=== PATIENT | female | born 1965 | race Caucasian/White ===

== ENCOUNTER → 2016-05-05 | Outpatient (CLI) | payer OTHER ==
--- NOTE | 2016-05-05 17:12 | CR ---
EXAMINATION: Pelvis and right hip HISTORY: Pain COMPARISON: CT dated 04/27/2016 TECHNIQUE: AP pelvis and 2 views of the right hip FINDINGS: There is mild subchondral sclerosis within the acetabula bilaterally. Joint spaces appear grossly preserved. No fracture or acute osseous abnormality. Joint spaces are preserved. The SI join ts are symmetric. IMPRESSION: Mild degenerative changes within the hips bilaterally without acute findings.
== END ==
LOC: MW.CHORTHO 07:55
PROVIDERS: ATTEND Orthopaedic Surgery
DX: M25.551 Pain in right hip (principal)
CPT/HCPCS: 73502-26-RT; 73502-RT

== ENCOUNTER → 2016-05-27 | Outpatient (CLI) | payer OTHER | END | disposition home or self-care (01) | LOC: MW.CHPM 15:45 | PROVIDERS: ATTEND Anesthesiology | DX: Z51.81 Encounter for therapeutic drug level monitoring (principal); Z79.891 Long term (current) use of opiate analgesic | CPT/HCPCS: 80305 ==

== ENCOUNTER → 2016-07-14 | Outpatient (CLI) | payer OTHER ==
--- NOTE | 2016-07-15 15:41 | CT ---
EXAM DATE: 07/14/16 PATIENT'S AGE: 51 Patient: MAGALY WEEMS Facility: [place], [place] Site . Site : [id number] Study: CT Abdomen/Pelvis [id number]/9/2017 5:14:15 PM Ordering Physician: Yohannes Teresa Final Report: INDICATION: Left lower quadrant abdominal pelvic pain. Diverticulitis for 2 days. TECHNIQUE: Noncontrast CT of the abdomen and pelvis. COMPARISON: None. FINDINGS: The included lung bases are clear. The unenhanced liver, spleen, pancreas, adrenal glands, kidneys, abdominal aorta and iliac arteries, inferior vena cava , and urinary bladder are normal. Surgically absent gallbladder. Left lam colonic diverticulosis. There are CT changes compatible with mild diverticulitis within the left lower quadrant at the junction of the descending and sigmoid colon with minimal pericolonic fat stranding. No abscess, bowel obstruction, or free air. The uterus is prominent and there appear to be several uterine masses, likely fibroids. Consider pelvic ultrasound for further characterization. No adnexal masses. No ascites or lymphadenopathy. Normal appendix. The included skeleton is negative for fractures. Degenerative facet arthropathy of the lumbar spine. IMPRESSION: 1. Mild distal descending/proximal sigmoid diverticulitis. No abscess, bowel obstruction, or free air. 2. Uterine masses likely fibroids. Consider ultrasound for further characterization. Dictated by Jovani Thompson MD @ 07/14/2016 5:37:12 PM Dictated by: Jovani Thompson MD @ 07/14/2016 17:37:27 (Electronic Signature) Report Signed by Proxy. JEANETTE
== END | disposition home or self-care (01) ==
LOC: MW.CHIM 16:30
PROVIDERS: ATTEND Internal Medicine
DX: R10.9 Unspecified abdominal pain (principal); K57.32 Diverticulitis of large intestine without perforation or abscess without bleeding; N85.9 Noninflammatory disorder of uterus, unspecified
CPT/HCPCS: 36415; 74176; 74176-26; 80053; 82150; 85025; 85652; 86140

== ENCOUNTER 2016-09-10 08:06 | Day surgery (SDC) | payer OTHER ==
[~2016-09-10 08:06] MED LIST: Lactated Ringers 1,000 ML IV SCH
[2016-09-10] MEDS ORDERED: Propofol 200 MG/20 ML SDV ONE (08:31)
[2016-09-10] MEDS ORDERED: Lidocaine 2% 5 ML SDV ONE (08:31)
--- NOTE | 2016-09-10 08:36 | PCM.PREANE ---
Preanesthetic Assessment - Anesthesia/Transfusion/Family Hx Anesthesia History: Prior Anesthesia Without Reaction Family History of Anesthesia Reaction: No Transfusion History: Prior Transfusion Without Reaction Intubation History: Unknown - Review of Systems General: No Symptoms Pulmonary: No Symptoms Cardiovascular: No Symptoms Gastrointestinal: Abdominal pain Neurological: No Symptoms Other: Reports: None - Physical Assessment Height: 1.68 m Weight: 92.533 kg ASA Class: 2 Mental Status: Alert & Oriented x3 Airway Class: Mallampati = 2 Dentition: Reports: Normal Dentition Thyro-Mental Finger Breadths: 3 Mouth Opening Finger Breadths: 3 ROM/Head Extension: Full Lungs: Clear to auscultation, Normal respiratory effort Cardiovascular: Regular Rate, Regular Rhythm - Lab Values: Laboratory Last Values Urine HCG, Qual NEGATIVE (NEGATIVE) 09/10/16 08:10 - Allergies Allergies/Adverse Reactions: Allergies Allergy/AdvReac Type Severity Reaction Status Date / Time No Known Allergies Allergy Verified 04/27/16 06:47 - Blood Blood Available: No - Anesthesia Plan Pre-Op Medication Ordered: None - Acknowledgements Anesthesia Type Planned: MAC Pt an Appropriate Candidate for the Planned Anesthesia: Yes Alternatives and Risks of Anesthesia Discussed w Pt/Guardian: Yes Pt/Guardian Understands and Agrees with Anesthesia Plan: Yes PreAnesthesia Questionnaire - Past Health History Medical/Surgical History: Denies Medical/Surgical History HEENT History: Reports: None Cardiovascular History: Reports: None Respiratory History: Reports: None Gastrointestinal History: Reports: Diverticulosis Other Gastrointestinal History: hx diverticulitis Genitourinary History: Reports: None BODY LINER History: Reports: Musculoskeletal History: Reports: Back Pain, Chronic, Other (See Below) (lumbar spinal stenosis, multilevel neural foraminal stenosis,myofascial pain syndrome) Neurological History: Reports: Other (See Below) Other Neuro History: Nerve pain r/t chronic back pain Psychiatric History: Reports: None Endocrine/Metabolic History: Reports: Obesity/BMI 30+ Hematologic History: Reports: Anemia, Blood Transfusion(s) Other Hematologic History: states transfusion when she was young, states has bleeding disorder Immunologic History: Reports: None Oncologic (Cancer) History: Reports: None Dermatologic History: Reports: None - Infectious Disease History Infectious Disease History: Reports: None - Past Surgical History Head Surgeries/Procedures: Reports: None HEENT Surgical History: Reports: Adenoidectomy, Tonsillectomy GI Surgical History: Reports: Cholecystectomy, Colonoscopy ('11) Female Surgical History: Reports: Section Musculoskeletal Surgical History: Reports: Arthroscopic Knee, Shoulder Surgery, Other (See Below) Other Musculoskeletal Surgeries/Procedures:: Right knee surgery for meniscus repair, right rotator cuff repair - SUBSTANCE USE Smoking Status *Q: Never Smoker Tobacco Use Within Last Twelve Months: Cigarettes Second Hand Smoke Exposure: No Days Per Week of Alcohol Use: 1 Number of Drinks Per Day: 3 Total Drinks Per Week: 3 Recreational Drug Use History: No - HOME MEDS Home Medications: Home Meds . [No Known Home Meds] 09/07/16 [History] - CURRENT (IN HOUSE) MEDS Current Meds: Current Medications Lactated Ringer's (Ringers, Lactated) 1,000 mls @ 125 mls/hr IV ASDIRECTED KARY
[2016-09-10] MEDS ORDERED: Lactated Ringers 1,000 ML IV SCH (10:30)
--- NOTE | 2016-09-10 10:31 | PCM.OPNOTE ---
- General Post-Op/Procedure Note Date of Surgery/Procedure: 09/10/16 Operative Procedure(s): Colonoscopy Pre Op Diagnosis: Left lower quadrant pain. Change in bowel habits. History of diverticulitis. Post-Op Diagnosis: Sigmoid diverticulosis Anesthesia Technique: MAC (ASA II) Primary Surgeon: Peter Walls Condition: Good Free Text/Narrative:: Dictation [id number] CPT CODE 39747
--- NOTE | 2016-09-10 10:44 | PCM.POSTAN ---
POST ANESTHESIA ASSESSMENT - MENTAL STATUS Mental Status: alert, oriented - RESPIRATORY Respiratory Status: respiratory rate WNL, airway patent, O2 saturation stable - CARDIOVASCULAR CV Status: pulse rate WNL, blood pressure stable - GASTROINTESTINAL GI Status: no symptoms - POST OP HYDRATION Hydration Status: adequate & stable - OBSERVATIONS Free Text/Narrative:: no anesthesia problems
[2016-09-10 11:17] VITALS: BP 133/47
--- NOTE | 2016-09-10 12:13 | OR ---
SURGEON: Peter Walls M.D. DATE OF PROCEDURE: 09/10/2016 OPERATION PERFORMED: Colonoscopy. ANESTHESIA: MAC. ASA CLASSIFICATION: II. PREOPERATIVE DIAGNOSES: 1. Left lower quadrant pain. 2. Change in bowel habits. 3. History of diverticulitis. POSTOPERATIVE DIAGNOSIS: Sigmoid diverticulosis. DESCRIPTION OF PROCEDURE: The patient was taken to the endoscopy room and positioned on the endoscopy table in the left lateral decubitus position. Time-out was called for appropriate identification of the patient and procedure. Monitored anesthesia care was provided. The colonoscope was inserted into the rectum and advanced with moderate difficulty to the cecum, where the colonoscope was retroflexed to visualize the ascending colon from below. The colonoscope was then straightened and slowly withdrawn. The cecum, ascending colon, hepatic flexure, transverse colon, splenic flexure, and descending colon showed no tumors, polyps, diverticula, or angiodysplastic changes. There was no evidence of inflammatory bowel disease. Sigmoid colon demonstrates numerous diverticula. No stricture, spasm, or bleeding was noted. No acute inflammatory changes were noted. No polyps were identified. The colonoscope was withdrawn to the rectum and retroflexed to visualize the anal orifice from above. No tumors, polyps, or acute hemorrhoidal changes were noted. The colonoscope was then straightened, the rectum aspirated, and the colonoscope removed. The patient tolerated the procedure well and was taken to recovery room in stable condition. OWEN ESPINOZA /[id number]
== END 2016-09-10 11:05 | disposition home or self-care (01) ==
LOC: MW.SDS 08:06
PROVIDERS: ATTEND Surgery
DX: K57.30 Diverticulosis of large intestine without perforation or abscess without bleeding (principal); Z79.899 Other long term (current) drug therapy; Z98.890 Other specified postprocedural states; Z78.9 Other specified health status
CPT/HCPCS: 45378; 81025; J7120; J2704

== ENCOUNTER 2016-11-11 09:14 | Inpatient (IN) | payer OTHER ==
[2016-11-11] MEDS ORDERED: Sodium Chloride 0.9% 1,000 ML IV ONE (09:47)
[2016-11-11] MEDS ORDERED: Ondansetron 4 MG/2 ML SDV IVPUSH ONE (09:47)
[2016-11-11] MEDS ORDERED: Sodium Chloride 0.9% 10 ML Syringe FLUSH PRN (09:47)
[2016-11-11] MEDS ORDERED: HYDROmorphone 2 MG/ML Syringe IVPUSH ONE (09:47)
[2016-11-11] MEDS ORDERED: Sodium Chloride 0.9% 2.5 ML Syringe FLUSH PRN (09:47)
--- NOTE | 2016-11-11 09:51 | EDM.PDOC ---
ED HPI GENERAL MEDICAL PROBLEM - General Chief Complaint: Abdominal Pain Stated Complaint: VOMITING Time Seen by Provider: 11/11/16 09:40 - History of Present Illness INITIAL COMMENTS - FREE TEXT/NARRATIVE: HISTORY AND PHYSICAL: History of present illness: The patient is a 51-year-old female with a history of diverticulosis and diverticulitis was had 2 flareups of diverticulitis this year so far, one in April and one in July, and presents with left lower quadrant pain that she believes to be diverticulitis. The patient says that she has had many flareups in the past and last had a colonoscopy in September which I reviewed. Patient says this pain started and was intense she has not had a fever or flank pain no urinary complaints but has had nausea vomiting and diarrhea. Patient had some Cipro left over from her last flareup and took 1 tablet of 500 mg and she said that her bowel movement this morning was more formed. Her bowel movements are not black or bloody. Patient did not take anything specific for pain and she said that she did eat pickles recently and she is not sure if that aggravated things. She has no chest pain or shortness of breath and her pain is only localized in the left lower quadrant. She has had upper respiratory symptoms of a cough and runny nose but she is not concerned about that. The patient does admit that she does drink a moderate amount of caffeinated products Review of systems: As per history of present illness and below otherwise all systems reviewed and negative. Past medical history: As per history of present illness and as reviewed below otherwise noncontributory. Surgical history: As per history of present illness and as reviewed below otherwise noncontributory. Social history: No reported history of drug or alcohol abuse. Family history: As per history of present illness and as reviewed below otherwise noncontributory. Physical exam: Gen.: Well-developed mildly overweight female who is nontoxic and speaking clearly and easily in the ED. She moves without distress. Vital signs of the note by me. HEENT: Atraumatic, normocephalic, pupils reactive, negative for conjunctival pallor or scleral icterus, mucous membranes tacky, throat clear, neck supple, nontender, trachea midline. Lungs: Clear to auscultation, breath sounds equal bilaterally, chest nontender. Heart: S1S2, regular, negative for clicks, rubs, or JVD. Abdomen: Soft, nondistended, bowel sounds are hypoactive, there is tenderness in the left lower quadrant some voluntary guarding but no involuntary guarding or rebound, Negative for masses or hepatosplenomegaly. Negative for costovertebral tenderness. Pelvis: Stable nontender. Genitourinary: Deferred. Rectal: Deferred. Extremities: Atraumatic, negative for cords or calf pain. Neurovascular unremarkable. Neuro: Awake, alert, oriented. Cranial nerves II through XII unremarkable. Cerebellum unremarkable. Motor and sensory unremarkable throughout. Exam nonfocal. Diagnostics: CBC CMP UA CT scan of the abdomen and pelvis Therapeutics: IV fluids Dilaudid Zofran Flagyl and Levaquin I discussed all testing results with the patient and she is still particularly tender on palpation but when I am not touching her she says she does not have any pain. I discussed the case and the CAT scan with Dr. Walls at 12:26 PM as well as Dr. Hernandez at 12:[address] Hernandez's accepted the patient for admission and Dr. Walls will perform a consult per Dr. Hernandez's request. Patient is agreeable to stay in the hospital as well. Please note that the patient did not complain of any periumbilical discomfort and has no tenderness in that region. Impression: Acute sigmoid diverticulitis with microperforation Definitive disposition and diagnosis as appropriate pending reevaluation and review of above. abdomen Pain Score (Numeric/FACES): 10 - Related Data Allergies Allergy/AdvReac Type Severity Reaction Status Date / Time No Known Allergies Allergy Verified 11/11/16 09:29 Home Meds: Home Meds Ciprofloxacin HCl [Cipro] 500 mg PO BID 11/11/16 [History] Orphenadrine [Norflex] 100 mg PO BID PRN 11/11/16 [History] Past Medical History - Past Health History Medical/Surgical History: Denies Medical/Surgical History HEENT History: Reports: None Cardiovascular History: Reports: None Respiratory History: Reports: None Gastrointestinal History: Reports: Diverticulosis Other Gastrointestinal History: hx diverticulitis Genitourinary History: Reports: None [employer] WORK[employer] History: Reports: Musculoskeletal History: Reports: Back Pain, Chronic, Other (See Below) Neurological History: Reports: Other (See Below) Other Neuro History: Nerve pain r/t chronic back pain Psychiatric History: Reports: None Endocrine/Metabolic History: Reports: Obesity/BMI 30+ Hematologic History: Reports: Anemia, Blood Transfusion(s) Other Hematologic History: states transfusion when she was young, states has bleeding disorder Immunologic History: Reports: None Oncologic (Cancer) History: Reports: None Dermatologic History: Reports: None - Infectious Disease History Infectious Disease History: Reports: None - Past Surgical History Head Surgeries/Procedures: Reports: None HEENT Surgical History: Reports: Adenoidectomy, Tonsillectomy GI Surgical History: Reports: Cholecystectomy, Colonoscopy Female Surgical History: Reports: Section Musculoskeletal Surgical History: Reports: Arthroscopic Knee, Shoulder Surgery, Other (See Below) Other Musculoskeletal Surgeries/Procedures:: Right knee surgery for meniscus repair, right rotator cuff repair Social & Family History - Family History Family Medical History: Noncontributory - Tobacco Use Smoking Status *Q: Never Smoker Years of Tobacco use: 0 Packs/Tins Daily: 0 Second Hand Smoke Exposure: No - Caffeine Use Caffeine Use: Reports: Soda - Alcohol Use Days Per Week of Alcohol Use: 1 Number of Drinks Per Day: 3 Total Drinks Per Week: 3 - Recreational Drug Use Recreational Drug Use: No ED ROS GENERAL - Review of Systems Review Of Systems: ROS reveals no pertinent complaints other than HPI. ED EXAM, GENERAL - Physical Exam Exam: See Below (See dictation) Course - Vital Signs Last Recorded V/S: Last Vital Signs Temp 36.4 C 11/11/16 09:14 Pulse 66 11/11/16 12:22 Resp 16 11/11/16 12:22 BP 136/79 11/11/16 12:22 Pulse Ox 99 11/11/16 12:22 - Orders/Labs/Meds Orders: Active Orders 24 hr Category Date Time Status Patient Status [ADT] Stat ADT 11/11/16 12:34 Active Notify Provider Consults [RC] ASDIRECTED Care 11/11/16 12:39 Ordered Consult to Physician [CONS] Stat Cons 11/11/16 12:39 Ordered Levofloxacin/Dextrose 5%-Water [Levaquin in D5W 500 MG/ Med 11/11/16 12:32 Active 100 ML] 500 mg Premix Bag 1 bag IV ONETIME Sodium Chloride 0.9% [Saline Flush] Med 11/11/16 09:47 Active 10 ml FLUSH ASDIRECTED PRN Sodium Chloride 0.9% [Saline Flush] Med 11/11/16 09:47 Active 2.5 ml FLUSH ASDIRECTED PRN metroNIDAZOLE/Normal Saline [Flagyl 500 MG in NS 100 ML Med 11/11/16 12:32 Active ] 500 mg Premix Bag 1 bag IV ONETIME Saline Lock Insert [OM.PC] Stat Oth 11/11/16 09:47 Ordered Medication Orders Levofloxacin/Dextrose 500 mg/ (Premix) 100 mls @ 100 mls/hr IV ONETIME ONE Stop: 11/11/16 13:31 Metronidazole 500 mg/ Premix 100 mls @ 100 mls/hr IV ONETIME ONE Stop: 11/11/16 13:31 Sodium Chloride (Saline Flush) 10 ml FLUSH ASDIRECTED PRN PRN Reason: Keep Vein Open Sodium Chloride (Saline Flush) 2.5 ml FLUSH ASDIRECTED PRN PRN Reason: Keep Vein Open Labs: Laboratory Tests 11/11/16 11/11/16 11/11/16 Range/Units 09:57 09:57 10:50 WBC 9.29 (4.0-11.0) K/uL RBC 5.00 (4.30-5.90) M/uL Hgb 15.4 (12.0-16.0) g/dL Hct 46.2 H (36.0-46.0) % MCV 92.4 (80.0-98.0) fL MCH 30.8 (27.0-32.0) pg MCHC 33.3 (31.0-37.0) g/dL RDW Std Deviation 42.8 (28.0-62.0) fl RDW Coeff of [place] 13 (11.0-15.0) % Plt Count 199 (150-400) K/uL MPV 10.50 (7.40-12.00) fL Neut % (Auto) 70.6 (48.0-80.0) % Lymph % (Auto) 18.5 (16.0-40.0) % [place] % (Auto) 9.3 (0.0-15.0) % Eos % (Auto) 1.4 (0.0-7.0) % Baso % (Auto) 0.2 (0.0-1.5) % Neut # (Auto) 6.6 H (1.4-5.7) K/uL Lymph # (Auto) 1.7 (0.6-2.4) K/uL [place] # (Auto) 0.9 H (0.0-0.8) K/uL Eos # (Auto) 0.1 (0.0-0.7) K/uL Baso # (Auto) 0.0 (0.0-0.1) K/uL Nucleated RBC % 0.0 /100WBC Nucleated RBCs # 0 K/uL Sodium 138 (136-146) mmol/L Potassium 4.8 (3.5-5.1) mmol/L Chloride 105 (98-110) mmol/L Carbon Dioxide 23 (21-31) mmol/L BUN 15 (6.0-23.0) mg/dL Creatinine 1.2 (0.6-1.5) mg/dL Est Cr Clr Drug Dosing 50.75 mL/min Estimated GFR (MDRD) 47.0 ml/min Glucose 105 (60-110) mg/dL Calcium 9.8 (8.8-10.8) mg/dL Total Bilirubin 0.5 (0.1-1.5) mg/dL AST 24 (5-40) IU/L ALT 28 (8-54) IU/L Alkaline Phosphatase 82 (40-150) Total Protein 8.3 H (6.0-8.0) g/dL Albumin 4.4 (3.5-5.0) g/dL Globulin 3.9 H (2.0-3.5) g/dL Albumin/Globulin Ratio 1.1 L (1.3-2.8) Urine Color YELLOW Urine Appearance CLEAR Urine pH 5.5 (5.0-8.0) Ur Specific [place] <= 1.005 (1.001-1.035) Urine Protein NEGATIVE (NEGATIVE) mg/dL Urine Glucose (UA) NEGATIVE (NEGATIVE) mg/dL Urine Ketones NEGATIVE (NEGATIVE) mg/dL Urine Occult Blood TRACE-INTACT (NEGATIVE) Urine Nitrite NEGATIVE (NEGATIVE) Urine Bilirubin NEGATIVE (NEGATIVE) Urine Urobilinogen 0.2 (<2.0) EU/dL Ur Leukocyte Esterase NEGATIVE (NEGATIVE) Urine RBC 0-1 (0-2/HPF) Urine WBC 0-1 (0-5/HPF) Ur Epithelial Cells RARE (NONE-FEW) Amorphous Sediment RARE (NEGATIVE) Urine Bacteria RARE (NEGATIVE) Meds: Medications Generic Name Dose Route Start Last Admin Trade Name Freq PRN Reason Stop Dose Admin Levofloxacin/Dextrose 500 mg/ 100 mls @ 100 mls/hr 11/11/16 12:32 Premix IV 11/11/16 13:31 ONETIME ONE Metronidazole 500 mg/ Premix 100 mls @ 100 mls/hr 11/11/16 12:32 IV 11/11/16 13:31 ONETIME ONE Sodium Chloride 10 ml 11/11/16 09:47 Saline Flush FLUSH ASDIRECTED PRN Keep Vein Open Sodium Chloride 2.5 ml 11/11/16 09:47 Saline Flush FLUSH ASDIRECTED PRN Keep Vein Open Discontinued Medications Generic Name Dose Route Start Last Admin Trade Name Freq PRN Reason Stop Dose Admin Hydromorphone HCl 0.5 mg 11/11/16 09:47 11/11/16 10:21 Dilaudid IVPUSH 11/11/16 09:48 0.5 mg ONETIME ONE Administration Sodium Chloride 1,000 mls @ 999 mls/hr 11/11/16 09:47 11/11/16 10:18 Normal Saline IV 11/11/16 10:47 999 mls/hr STAT ONE Administration Iopamidol 70 ml 11/11/16 11:09 Isovue Multipack-370 (76%) IVPUSH 11/11/16 11:10 ONETIME STA Ondansetron HCl 4 mg 11/11/16 09:47 11/11/16 10:21 Zofran IVPUSH 11/11/16 09:48 4 mg ONETIME ONE Administration Departure - Departure Time of Disposition: 12:42 Disposition: Refer to Observation Condition: Good Clinical Impression: Sigmoid diverticulitis - Discharge Information Referrals: Gregg Robledo MD [Primary Care Provider] - Forms: ED Department Discharge - My Orders Last 24 Hours: My Active Orders 11/11/16 09:47 Sodium Chloride 0.9% [Saline Flush] 10 ml FLUSH ASDIRECTED PRN Sodium Chloride 0.9% [Saline Flush] 2.5 ml FLUSH ASDIRECTED PRN Saline Lock Insert [OM.PC] Stat 11/11/16 12:32 Levofloxacin/Dextrose 5%-Water [Levaquin in D5W 500 MG/100 ML] 500 mg Premix Bag 1 bag IV ONETIME metroNIDAZOLE/Normal Saline [Flagyl 500 MG in NS 100 ML] 500 mg Premix Bag 1 bag IV ONETIME 11/11/16 12:34 Patient Status [ADT] Stat 11/11/16 12:39 Notify Provider Consults [RC] ASDIRECTED Consult to Physician [CONS] Stat - Assessment/Plan Last 24 Hours: My Active Orders 11/11/16 09:47 Sodium Chloride 0.9% [Saline Flush] 10 ml FLUSH ASDIRECTED PRN Sodium Chloride 0.9% [Saline Flush] 2.5 ml FLUSH ASDIRECTED PRN Saline Lock Insert [OM.PC] Stat 11/11/16 12:32 Levofloxacin/Dextrose 5%-Water [Levaquin in D5W 500 MG/100 ML] 500 mg Premix Bag 1 bag IV ONETIME metroNIDAZOLE/Normal Saline [Flagyl 500 MG in NS 100 ML] 500 mg Premix Bag 1 bag IV ONETIME 11/11/16 12:34 Patient Status [ADT] Stat 11/11/16 12:39 Notify Provider Consults [RC] ASDIRECTED Consult to Physician [CONS] Stat
[2016-11-11] MEDS ORDERED: Iopamidol 755 MG/ML 500 ML Multipack Bottle IVPUSH STA (11:09)
--- NOTE | 2016-11-11 12:24 | CT ---
CT of the abdomen and pelvis with contrast. HISTORY: Pain TECHNIQUE: Axial CT images were obtained of the abdomen and pelvis following administration of 75 mL of Isovue-370 without complication. Coronal and sagittal reconstructions obtained. FINDINGS: The lung bases are clear, no pleural effusion. The liver, spleen, adrenal glands, and pancreas appear normal. Cholecystectomy clips are noted. No bu lky retroperitoneal lymphadenopathy or abdominal ascites. The kidneys enhance and function symmetrically without evidence of obstructive uropathy. The small bowel is normal in caliber without evidence of obstruction. There is moderate colonic wall thickening within the proximal sigmoid region. There is adjacent stran ding multiple diverticula noted within the region. There is a trace adjacent fluid with a possible si ngle foci of adjacent air. There is a small broad-based umbilical hernia containing a very small port ion of bowel. There is no bulky pelvic lymphadenopathy. The urinary bladder appears normal. The appen jocelyne is unremarkable. The uterus and ovaries are unremarkable. No suspicious osseous abnormalities identified. Mild degenerative changes noted within the lumbar spi ne. IMPRESSION: 1. Sigmoid diverticulitis with possible microperforation 2. Cholecystectomy. 3. Small broad-based umbilical hernia containing a very small portion of small bowel.
[2016-11-11] MEDS ORDERED: metroNIDAZOLE/Normal Saline 500 MG in Premix Bag 1 BAG IV ONE (12:32)
[2016-11-11] MEDS ORDERED: Levofloxacin/Dextrose 5%-Water 500 MG in Premix Bag 1 BAG IV ONE (12:32)
[2016-11-11] MEDS ORDERED: Pantoprazole 40 MG Vial IV SCH (14:15)
--- NOTE | 2016-11-11 14:15 | PCM.HP ---
H&P History of Present Illness - General Date of Service: 11/11/16 Admit Problem/Dx: Diverticulitis with possible microperforation Source of Information: Patient History Limitations: Reports: No Limitations - History of Present Illness Initial Comments - Free Text/Narative: This 51 year old female with pmh of diverticulitis presented to the ED with abdominal pain that started this morning. She reports the past few days she just hasn't felt right, slightly nauseated and having diarrhea. Her son has had a stomach flu so she felt like maybe she had that or something with urinary tract, because she has been voiding a lot. She denies fevers, chills or chest pain. She reports the pain started to LLQ as typical for her diverticulitis, she has had 2 bouts this year and recently had a colonoscopy with Dr. Walls in September. Which showed sigmoid diverticulosis. In the ED, no leukocytosis noted, CMP WNL. VS stable, afebrile. CT of abdomen revealed moderate colonic wall thickening with the proximal sigmoid region, adjacent stranding, multiple diverticula noted within this region. Trace adjacent fluid with a possible single foci of adjacent air, sigmoid diverticulitis with possible microperforation. Dr. Walls was consulted in the ED and will consult with admission. She will be admitted for sigmoid diverticulitis with microperforation. PCP, Dr. Robledo abdomen Pain Score (Numeric/FACES): 0 - Related Data Allergies/Adverse Reactions: Allergies Allergy/AdvReac Type Severity Reaction Status Date / Time No Known Allergies Allergy Verified 11/11/16 09:29 Home Medications: Home Meds Ciprofloxacin HCl [Cipro] 500 mg PO BID 11/11/16 [History] Orphenadrine [Norflex] 100 mg PO BID PRN 11/11/16 [History] Past Medical History - Past Health History Medical/Surgical History: Denies Medical/Surgical History HEENT History: Reports: None Cardiovascular History: Reports: None. Denies: Afib, Blood Clots/VTE/DVT, High Cholesterol, Hypertension, [place] Respiratory History: Reports: None. Denies: COPD, PE Gastrointestinal History: Reports: Diverticulosis (with 2 flares diverticulitis) . Denies: GERD, GI Bleed Genitourinary History: Reports: None. 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 Immunologic History: Reports: None Oncologic (Cancer) History: Reports: None Dermatologic History: Reports: None - Infectious Disease History Infectious Disease History: Reports: None - Past Surgical History Head Surgeries/Procedures: Reports: None HEENT Surgical History: Reports: Adenoidectomy, Tonsillectomy GI Surgical History: Reports: Cholecystectomy, Colonoscopy Female Surgical History: Reports: Section Musculoskeletal Surgical History: Reports: Arthroscopic Knee, Shoulder Surgery, Other (See Below) Other Musculoskeletal Surgeries/Procedures:: Right knee surgery for meniscus repair, right rotator cuff repair Social & Family History - Family History Family Medical History: Noncontributory - Tobacco Use Smoking Status *Q: Never Smoker Years of Tobacco use: 0 Packs/Tins Daily: 0 Second Hand Smoke Exposure: No - Caffeine Use Caffeine Use: Reports: Soda Other Caffeine Use: 4 cans a day - Alcohol Use Alcohol Use History: No Days Per Week of Alcohol Use: 1 Number of Drinks Per Day: 3 Total Drinks Per Week: 3 Alcohol Use Frequency: Socially - Recreational Drug Use Recreational Drug Use: No - Living Situation & Occupation Living situation: Reports: with Significant Other, with Family 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 Denies: Fever, Chills, Malaise, Fatigue HEENT: Reports: No Symptoms. Denies: Headaches, Sinus Congestion, Sore Throat, Visual Changes Pulmonary: Reports: No Symptoms. Denies: Shortness of Breath, Cough, Sputum Cardiovascular: Reports: No Symptoms. Denies: Chest Pain, Palpitations, Dyspnea on Exertion, Edema Gastrointestinal: Reports: Abdominal Pain, Diarrhea, Flatus, Nausea, Vomiting. Denies: Black Stool, Bloody Stool, Distension, Hematemesis Genitourinary: Reports: Frequency. Denies: Dysuria, Burning, Pain, Urgency, Incontinence, Hematuria, Flank Pain Musculoskeletal: Reports: No Symptoms. Denies: Neck Pain Psychiatric: Reports: No Symptoms Neurological: Reports: No Symptoms Hematologic/Lymphatic: Reports: No Symptoms Immunologic: Reports: No Symptoms Exam - Exam Exam: See Below - Vital Signs Vital Signs: Last Vital Signs Temp 96.1 F 11/11/16 13:37 Pulse 69 11/11/16 13:37 Resp 18 11/11/16 13:37 BP 138/83 11/11/16 13:37 Pulse Ox 95 11/11/16 13:37 Weight: 92.7 kg - Exam General: Alert, Oriented, Cooperative HEENT: Conjunctiva Clear, Mucosa Moist & [place], Posterior Pharynx Clear Neck: Supple, Trachea Midline, 2 Lungs: Clear to Auscultation, Normal Respiratory Effort Cardiovascular: Regular Rate, Regular Rhythm. No: Normal S1, Normal S2, Systolic Murmur GI/Abdominal Exam: Normal Bowel Sounds, Soft, No Organomegaly, No Distention, No Abnormal Bruit, No Mass, Pelvis Stable, Tender (LLQ) Extremities: Normal Inspection, Normal Range of Motion, Non-Tender, No Pedal Edema, Normal Capillary Refill Neuro Extensive - Mental Status: Alert, Oriented x3, Normal Mood/Affect Neuro Extensive - Motor, Sensory, Reflexes: CN II-XII Intact, Normal Gait, Normal Reflexes Psychiatric: Alert, Normal Affect, Normal Mood - Patient Data Result Diagrams: 11/11/16 09:57 11/11/16 09:57 *Q Meaningful Use (ADM) - VTE *Q VTE Criteria *Q: - VTE Risk Assess *Q Each Risk Factor Represents 1 Point: Age 41 - 59 years Total Score 1 Point Risk Factors: 1 Each Risk Factor Represents 2 Points: None Total Score 2 Point Risk Factors: 0 Each Risk Factor Represents 3 Points: None Total Score 3 Point Risk Factors: 0 Each Risk Factor Represents 5 Points: None Total Score 5 Point Risk Factors: 0 Venous Thromboembolism Risk Factor Score *Q: 1 - Stroke *Q Stroke Criteria *Q: - AMI *Q AMI Criteria *Q: - Problem List (1) Perforation of sigmoid colon due to diverticulitis SNOMED Code(s): 2404406751616208 ICD Code: K57.20 - DVTRCLI OF LG INT W PERFORATION AND ABSCESS W/O BLEEDING Status: Acute Current Visit: Yes (2) Abdominal pain SNOMED Code(s): 69615764 ICD Code: R10.9 - UNSPECIFIED ABDOMINAL PAIN Status: Acute Current Visit : No (3) Diverticulosis SNOMED Code(s): 041784562 ICD Code: K57.90 - DVRTCLOS OF INTEST, PART UNSP, W/O PERF OR ABSCESS W/O BLEED Status: Chronic Current Visit: Yes Qualifiers: Diverticulosis site: diverticulosis of large intestine Diverticulosis bleeding: diverticulosis without bleeding Qualified Code(s): K57.30 - Diverticulosis of large intestine without perforation or abscess without bleeding Problem List Initiated/Reviewed/Updated: Yes Orders Last 24hrs: Active Orders 24 hr Category Date Time Status Antiembolic Devices [RC] PER UNIT ROUTINE Care 11/11/16 14:07 Ordered Intake and Output [RC] QSHIFT Care 11/11/16 14:06 Ordered Oxygen Therapy [RC] PRN Care 11/11/16 14:06 Ordered Up With Assistance [RC] ASDIRECTED Care 11/11/16 14:06 Ordered VTE/DVT Education [RC] PER UNIT ROUTINE Care 11/11/16 14:06 Ordered Vital Signs [RC] Q4H Care 11/11/16 14:06 Ordered Nothing Per Oral Diet [DIET] Diet 11/11/16 Dinner Ordered BASIC METABOLIC PANEL,BMP [CHEM] AM Lab 11/12/16 05:11 Ordered BASIC METABOLIC PANEL,BMP [CHEM] AM Lab 11/13/16 05:11 Ordered BASIC METABOLIC PANEL,BMP [CHEM] AM Lab 11/14/16 05:11 Ordered CBC WITH AUTO DIFF [HEME] AM Lab 11/12/16 05:11 Ordered CBC WITH AUTO DIFF [HEME] AM Lab 11/13/16 05:11 Ordered CBC WITH AUTO DIFF [HEME] AM Lab 11/14/16 05:11 Ordered Levofloxacin/Dextrose 5%-Water [Levaquin in D5W 750 MG/ Med 11/12/16 12:00 Ordered 150 ML] 750 mg Premix Bag 1 bag IV Q24H Morphine Med 11/11/16 14:06 Ordered 3 mg IVPUSH Q2H PRN Ondansetron [Zofran] Med 11/11/16 14:07 Ordered 4 mg IVPUSH Q4H PRN Pantoprazole [ProTONIX IV] Med 11/11/16 14:15 Ordered 40 mg IV Q24H Sodium Chloride 0.9% @ 125 MLS/HR (1000ml) Med 11/11/16 14:15 Ordered Sodium Chloride 0.9% [Normal Saline] 1,000 ml IV ASDIRECTED metroNIDAZOLE/Normal Saline [Flagyl 500 MG in NS 100 ML Med 11/11/16 18:00 Ordered ] 500 mg Premix Bag 1 bag IV QID Sequential Compression Device [OM.PC] Per Unit Routine Oth 11/11/16 14:06 Ordered Resuscitation Status Routine Resus Stat 11/11/16 14:06 Ordered Medication Orders Levofloxacin/Dextrose 750 mg/ (Premix) 150 mls @ 100 mls/hr IV Q24H KARY Metronidazole 500 mg/ Premix 100 mls @ 100 mls/hr IV QID KARY Sodium Chloride (Normal Saline) 1,000 mls @ 125 mls/hr IV ASDIRECTED KARY Morphine Sulfate (Morphine) 3 mg IVPUSH Q2H PRN PRN Reason: Pain (severe 7-10) Ondansetron HCl (Zofran) 4 mg IVPUSH Q4H PRN PRN Reason: Nausea Pantoprazole Sodium (Protonix Iv) 40 mg IV Q24H KARY Sodium Chloride (Saline Flush) 10 ml FLUSH ASDIRECTED PRN PRN Reason: Keep Vein Open Sodium Chloride (Saline Flush) 2.5 ml FLUSH ASDIRECTED PRN PRN Reason: Keep Vein Open Assessment/Plan Comment:: This 51 year old female admitted with sigmoid diverticulitis with possible microperforation 1. Sigmoid diverticulitis with microperforation: Place on bowel rest, ok to have ice chips. Will continue Levaquin and Flagyl and IVFs. Consult Dr. Walls , general surgery. Analgesia and anti-emetics PRN for pain and nausea. VTE prophylaxis: SCDs Dispo: 1-3 days pending improvement.
[2016-11-11] MEDS: Sodium Chloride 0.9% 1,000 ML IV SCH (14:37)
[2016-11-11] MEDS: Pantoprazole 40 MG in Sodium Chloride 0.9% 10 ML IV SCH (15:30)
[2016-11-11] MEDS: metroNIDAZOLE/Normal Saline 500 MG in Premix Bag 1 BAG IV SCH ×2 (17:22→23:32)
[2016-11-11] MEDS: Ondansetron 4 MG/2 ML SDV IVPUSH PRN ×2 (17:30→21:31)
[2016-11-11] MEDS: Morphine 4 MG/ML Syringe IVPUSH PRN ×2 (17:38→21:27)
--- NOTE | 2016-11-11 18:41 | PCM.CONS ---
H&P History of Present Illness - General Date of Service: 11/11/16 Admit Problem/Dx: Diverticulitis with possible microperforation Source of Information: Patient History Limitations: Reports: No Limitations - History of Present Illness Symptom Onset Date: 11/10/16 Duration of Symptoms: Reports: Day(s): Location: Reports: Abdomen Quality: Reports: Burning, Pressure, Same as Previous Episode Severity: Moderate Improves with: Reports: Rest Worsens with: Reports: Movement Associated Symptoms: Reports: No Other Symptoms abdomen Pain Score (Numeric/FACES): 0 - Related Data Allergies/Adverse Reactions: Allergies Allergy/AdvReac Type Severity Reaction Status Date / Time No Known Allergies Allergy Verified 11/11/16 09:29 Home Medications: Home Meds Ciprofloxacin HCl [Cipro] 500 mg PO BID 11/11/16 [History] Orphenadrine [Norflex] 100 mg PO BID PRN 11/11/16 [History] Past Medical History - Past Health History Medical/Surgical History: Denies Medical/Surgical History HEENT History: Reports: None Cardiovascular History: Reports: None. Denies: Afib, Blood Clots/VTE/DVT, High Cholesterol, Hypertension, [place] Respiratory History: Reports: None. Denies: COPD, PE Gastrointestinal History: Reports: Diverticulosis (with 2 flares diverticulitis) . Denies: GERD, GI Bleed Other Gastrointestinal History: hx diverticulitis Genitourinary History: Reports: None. 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 Immunologic History: Reports: None Oncologic (Cancer) History: Reports: None Dermatologic History: Reports: None - Infectious Disease History Infectious Disease History: Reports: None - Past Surgical History Head Surgeries/Procedures: Reports: None HEENT Surgical History: Reports: Adenoidectomy, Tonsillectomy GI Surgical History: Reports: Cholecystectomy, Colonoscopy Female Surgical History: Reports: Section Musculoskeletal Surgical History: Reports: Arthroscopic Knee, Shoulder Surgery, Other (See Below) Other Musculoskeletal Surgeries/Procedures:: Right knee surgery for meniscus repair, right rotator cuff repair Social & Family History - Family History Family Medical History: Noncontributory - Tobacco Use Smoking Status *Q: Never Smoker Years of Tobacco use: 0 Packs/Tins Daily: 0 Second Hand Smoke Exposure: No - Caffeine Use Caffeine Use: Reports: Soda Other Caffeine Use: 4 cans a day - Alcohol Use Days Per Week of Alcohol Use: 1 Number of Drinks Per Day: 3 Total Drinks Per Week: 3 - Recreational Drug Use Recreational Drug Use: No - Living Situation & Occupation Living situation: Reports: with Significant Other, with Family 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 Denies: Anorexia, Hematochezia, Melena Genitourinary: Reports: No Symptoms Musculoskeletal: Reports: No Symptoms Skin: Reports: No Symptoms Psychiatric: Reports: No Symptoms Neurological: Reports: No Symptoms Hematologic/Lymphatic: Reports: No Symptoms Immunologic: Reports: No Symptoms Exam - Exam Exam: See Below - Vital Signs Vital Signs: Last Vital Signs Temp 97.9 F 11/11/16 16:00 Pulse 72 11/11/16 16:00 Resp 16 11/11/16 16:00 BP 139/82 11/11/16 16:00 Pulse Ox 97 11/11/16 16:00 Weight: 204 lb 5.896 oz - Exam General: Alert, Oriented, Cooperative, Moderate Distress HEENT: PERRLA Neck: Supple, Trachea Midline Lungs: Clear to Auscultation Cardiovascular: Regular Rate, Regular Rhythm. No: Tachycardia GI/Abdominal Exam: Normal Bowel Sounds, Soft, Guarding, Rebound, Tender. No: Rigid, Mass (Female) Exam: Deferred Rectal (Female) Exam: Deferred Extremities: Normal Inspection Skin: Warm, Dry, Intact Neurological: Cranial Nerves Intact Psychiatric: Alert, Normal Affect, Normal Mood - Patient Data Result Diagrams: 11/11/16 09:57 11/11/16 09:57 Consult PN Assessment/Plan Procedures: Procedures ASSAY OF AMYLASE (05/09/17) ASSAY OF FREE THYROXINE (09/21/14) ASSAY OF LIPASE (04/27/16) ASSAY OF TROPONIN QUANT (04/27/16) ASSAY THYROID STIM HORMONE (09/21/14) C-REACTIVE PROTEIN (07/14/16) CHEST X-RAY 2VW FRONTAL&LATL (04/27/14) COMP SCREEN MAMMOGRAM ADD-ON (03/27/14) COMPLETE CBC W/AUTO DIFF WBC (07/14/16) COMPREHEN METABOLIC PANEL (07/14/16) CT ABD & PELV W/CONTRAST (04/27/16) CT ABD & PELVIS W/O CONTRAST (07/14/16) CT HEAD/BRAIN W/O DYE (04/27/14) CT UPPER EXTREMITY W/O DYE (05/31/15) DIAGNOSTIC COLONOSCOPY (09/10/16) DRUG TEST PRSMV DIR OPT OBS (05/27/16) ELECTROCARDIOGRAM TRACING (04/27/14) EMERGENCY DEPT VISIT (04/27/16) EMERGENCY DEPT VISIT (05/03/15) EMERGENCY DEPT VISIT (11/16/14) EMERGENCY DEPT VISIT (04/27/14) FREE ASSAY (FT-3) (09/21/14) HYDRATE IV INFUSION ADD-ON (04/27/16) INJ PARAVERT F JNT L/S 1 LEV (04/09/16) INJ PARAVERT F JNT L/S 2 LEV (04/09/16) INJECT SPINE LUMBAR/SACRAL (01/28/16) INJECTION FOR SHOULDER X-RAY (05/04/14) MRI CHEST SPINE W/O DYE (03/23/16) MRI JOINT UPR EXTR W/O&W/DYE (05/04/14) MRI LUMBAR SPINE W/O DYE (03/23/16) NEEDLE LOCALIZATION BY XRAY (05/04/14) RBC SED RATE AUTOMATED (07/14/16) ROUTINE VENIPUNCTURE (07/14/16) THER/PROPH/DIAG INJ IV PUSH (04/27/16) THER/PROPH/DIAG INJ SC/IM (05/03/15) TREAT SHOULDER DISLOCATION (07/26/15) TX/PRO/DX INJ NEW DRUG ADDON (04/27/16) TX/PRO/DX INJ 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 (11/16/14) URINALYSIS AUTO W/SCOPE (04/27/16) URINE TEST (09/10/16) X-RAY EXAM HIP UNI 2-3 VIEWS (05/05/16) X-RAY EXAM L-S SPINE 2/3 VWS (11/22/14) X-RAY EXAM OF FOOT (03/27/14) X-RAY EXAM OF HIP (11/22/14) X-RAY EXAM OF SHOULDER (07/26/15) (1) Perforation of sigmoid colon due to diverticulitis SNOMED Code(s): 5598590365822056 Code(s): K57.20 - DVTRCLI OF LG INT W PERFORATION AND ABSCESS W/O BLEEDING Priority: High Current Visit: Yes (2) Sigmoid diverticulitis SNOMED Code(s): 850870155 Code(s): K57.32 - DVTRCLI OF LG INT W/O PERFORATION OR ABSCESS W/O BLEEDING Priority: High Current Visit: Yes Problem List Initiated/Reviewed/Updated: Yes Plan: Acute sigmoid diverticulitis w/ microperforation. REC: 1) Parenteral antibiotics 2) Bowel rest until abdomen is nontender 3) Repeat CBCAD in am
[2016-11-12] MEDS: Sodium Chloride 0.9% 1,000 ML IV SCH ×3 (00:39→21:46)
[2016-11-12] MEDS: metroNIDAZOLE/Normal Saline 500 MG in Premix Bag 1 BAG IV SCH ×4 (05:20→23:51)
[2016-11-12] MEDS: Acetaminophen 325 MG Tab PO PRN ×2 (05:40→11:51)
[2016-11-12] MEDS: Morphine 4 MG/ML Syringe IVPUSH PRN ×2 (07:04→16:00)
--- NOTE | 2016-11-12 08:01 | PCM.PN ---
- General Info Date of Service: 11/12/16 Admission Dx/Problem (Free Text): Diverticulitis with possible microperforation Subjective Update: Feeling somehwat better, continues to have some pain to LLQ, nausea has improved. Passing flatus, no BMs.Continues to complain of sinus congestion and cough, but denies wanting anything for relief. Functional Status: Reports: Pain Controlled, Ambulating, Urinating - Review of Systems General: Reports: No Symptoms. Denies: Fever HEENT: Reports: Sinus Congestion. Denies: Ear Pain, Headaches, Sore Throat, Visual Changes Pulmonary: Reports: Cough. Denies: Shortness of Breath, Sputum Cardiovascular: Reports: No Symptoms. Denies: Chest Pain, Palpitations, Edema Gastrointestinal: Reports: Abdominal Pain (LLQ), Flatus. Denies: Nausea, Vomiting Genitourinary: Reports: No Symptoms. Denies: Dysuria, Frequency, Burning Musculoskeletal: Reports: No Symptoms Skin: Reports: No Symptoms Neurological: Reports: No Symptoms Psychiatric: Reports: No Symptoms - Patient Data Vitals - Most Recent: Last Vital Signs Temp 98.2 F 11/12/16 07:49 Pulse 66 11/12/16 07:49 Resp 16 11/12/16 07:49 BP 107/69 11/12/16 07:49 Pulse Ox 96 11/12/16 07:49 Weight - Most Recent: 92.7 kg I&O - Last 24 Hours: Intake & Output 11/11/16 11/12/16 11/12/16 22:59 06:59 14:59 Intake Total 350 1260 Output Total 300 700 Balance 50 560 Lab Results Last 24 Hours: Laboratory Results - last 24 hr 11/12/16 11/12/16 Range/Units 04:28 04:28 WBC 5.25 (4.0-11.0) K/uL RBC 4.36 (4.30-5.90) M/uL Hgb 13.4 (12.0-16.0) g/dL Hct 40.7 (36.0-46.0) % MCV 93.3 (80.0-98.0) fL MCH 30.7 (27.0-32.0) pg MCHC 32.9 (31.0-37.0) g/dL RDW Std Deviation 43.1 (28.0-62.0) fl RDW Coeff of [place] 13 (11.0-15.0) % Plt Count 190 (150-400) K/uL MPV 10.30 (7.40-12.00) fL Neut % (Auto) 55.7 (48.0-80.0) % Lymph % (Auto) 30.9 (16.0-40.0) % [place] % (Auto) 10.7 (0.0-15.0) % Eos % (Auto) 2.5 (0.0-7.0) % Baso % (Auto) 0.2 (0.0-1.5) % Neut # (Auto) 2.9 (1.4-5.7) K/uL Lymph # (Auto) 1.6 (0.6-2.4) K/uL [place] # (Auto) 0.6 (0.0-0.8) K/uL Eos # (Auto) 0.1 (0.0-0.7) K/uL Baso # (Auto) 0.0 (0.0-0.1) K/uL Nucleated RBC % 0.0 /100WBC Nucleated RBCs # 0 K/uL Sodium 142 (136-146) mmol/L Potassium 3.8 (3.5-5.1) mmol/L Chloride 111 H (98-110) mmol/L Carbon Dioxide 23 (21-31) mmol/L BUN 11 (6.0-23.0) mg/dL Creatinine 1.1 (0.6-1.5) mg/dL Est Cr Clr Drug Dosing 55.37 mL/min Estimated GFR (MDRD) 52.0 ml/min Glucose 95 (60-110) mg/dL Calcium 8.6 L (8.8-10.8) mg/dL Med Orders - Current: Current Medications Acetaminophen (Tylenol) 650 mg PO Q6H PRN PRN Reason: pain/headache Last Admin: 11/12/16 05:40 Dose: 650 mg Levofloxacin/Dextrose 750 mg/ (Premix) 150 mls @ 100 mls/hr IV Q24H KARY Metronidazole 500 mg/ Premix 100 mls @ 100 mls/hr IV QID KARY Last Admin: 11/12/16 05:20 Dose: 100 mls/hr Sodium Chloride (Normal Saline) 1,000 mls @ 125 mls/hr IV ASDIRECTED KARY Last Admin: 11/12/16 00:39 Dose: 125 mls/hr Pantoprazole Sodium 40 mg/ (Sodium Chloride) 10 mls @ 300 mls/hr IV Q24H KARY Last Admin: 11/11/16 15:30 Dose: 300 mls/hr Morphine Sulfate (Morphine) 3 mg IVPUSH Q2H PRN PRN Reason: Pain (severe 7-10) Last Admin: 11/12/16 07:04 Dose: 3 mg Ondansetron HCl (Zofran) 4 mg IVPUSH Q4H PRN PRN Reason: Nausea Last Admin: 11/11/16 21:31 Dose: 4 mg Sodium Chloride (Saline Flush) 10 ml FLUSH ASDIRECTED PRN PRN Reason: Keep Vein Open Sodium Chloride (Saline Flush) 2.5 ml FLUSH ASDIRECTED PRN PRN Reason: Keep Vein Open Discontinued Medications Hydromorphone HCl (Dilaudid) 0.5 mg IVPUSH ONETIME ONE Stop: 11/11/16 09:48 Last Admin: 11/11/16 10:21 Dose: 0.5 mg Sodium Chloride (Normal Saline) 1,000 mls @ 999 mls/hr IV STAT ONE Stop: 11/11/16 10:47 Last Admin: 11/11/16 10:18 Dose: 999 mls/hr Levofloxacin/Dextrose 500 mg/ (Premix) 100 mls @ 100 mls/hr IV ONETIME ONE Stop: 11/11/16 13:31 Last Admin: 11/11/16 12:50 Dose: 100 mls/hr Metronidazole 500 mg/ Premix 100 mls @ 100 mls/hr IV ONETIME ONE Stop: 11/11/16 13:31 Last Admin: 11/11/16 13:45 Dose: 100 mls/hr Iopamidol (Isovue Multipack-370 (76%)) 70 ml IVPUSH ONETIME STA Stop: 11/11/16 11:10 Last Admin: 11/11/16 14:31 Dose: Not Given Ondansetron HCl (Zofran) 4 mg IVPUSH ONETIME ONE Stop: 11/11/16 09:48 Last Admin: 11/11/16 10:21 Dose: 4 mg - Exam General: Alert, Oriented, Cooperative, No Acute Distress HEENT: Other (sinus congestion noted) Neck: Supple Lungs: Clear to Auscultation, Normal Respiratory Effort, Other (dry cough) Cardiovascular: Regular Rate, Regular Rhythm, No Murmurs GI/Abdominal Exam: Normal Bowel Sounds, Soft, No Mass, Tender (LLQ and slightly midline from LLQ). No: Distended Neurological: No New Focal Deficit Psy/Mental Status: Alert, Normal Affect, Normal Mood - Problem List & Annotations (1) Perforation of sigmoid colon due to diverticulitis SNOMED Code(s): 9231368004920555 Code(s): K57.20 - DVTRCLI OF LG INT W PERFORATION AND ABSCESS W/O BLEEDING Status: Acute Priority: High Current Visit: Yes (2) Abdominal pain SNOMED Code(s): 04308692 Code(s): R10.9 - UNSPECIFIED ABDOMINAL PAIN Status: Acute Current Visit: No (3) Diverticulosis SNOMED Code(s): 519595399 Code(s): K57.90 - DVRTCLOS OF INTEST, PART UNSP, W/O PERF OR ABSCESS W/O BLEED Status: Chronic Current Visit: Yes Qualifiers: Diverticulosis site: diverticulosis of large intestine Diverticulosis bleeding: diverticulosis without bleeding Qualified Code(s): K57.30 - Diverticulosis of large intestine without perforation or abscess without bleeding - Problem List Review Problem List Initiated/Reviewed/Updated: Yes - My Orders Last 24 Hours: My Active Orders 11/11/16 14:06 Intake and Output [RC] QSHIFT Oxygen Therapy [RC] PRN Up With Assistance [RC] ASDIRECTED VTE/DVT Education [RC] PER UNIT ROUTINE Vital Signs [RC] Q4H Morphine 3 mg IVPUSH Q2H PRN Sequential Compression Device [OM.PC] Per Unit Routine Resuscitation Status Routine 11/11/16 14:07 Antiembolic Devices [RC] PER UNIT ROUTINE Ondansetron [Zofran] 4 mg IVPUSH Q4H PRN 11/11/16 14:15 Sodium Chloride 0.9% [Normal Saline] 1,000 ml IV ASDIRECTED 11/11/16 15:00 Pantoprazole [ProTONIX IV] 40 mg Sodium Chloride 0.9% [Normal Saline] 10 ml IV Q24H 11/11/16 18:00 metroNIDAZOLE/Normal Saline [Flagyl 500 MG in NS 100 ML] 500 mg Premix Bag 1 bag IV QID 11/11/16 Dinner Nothing Per Oral Diet [DIET] 11/12/16 13:00 Levofloxacin/Dextrose 5%-Water [Levaquin in D5W 750 MG/150 ML] 750 mg Premix Bag 1 bag IV Q24H 11/13/16 05:11 BASIC METABOLIC PANEL,BMP [CHEM] AM CBC WITH AUTO DIFF [HEME] AM 11/14/16 05:11 BASIC METABOLIC PANEL,BMP [CHEM] AM CBC WITH AUTO DIFF [HEME] AM - Plan Plan:: This 51 year old female admitted with sigmoid diverticulitis with possible microperforation 1. Sigmoid diverticulitis with microperforation: Continue bowel rest, ok to have ice chips. Continue Levaquin and Flagyl and IVFs. Consult Dr. Walls, general surgery, I appreciate his assistance with this paint. Continue Analgesia and anti-emetics PRN for pain and nausea. VTE prophylaxis: SCDs Dispo: 1-3 days pending improvement.
[2016-11-12] MEDS: Levofloxacin/Dextrose 5%-Water 750 MG in Premix Bag 1 BAG IV SCH (12:16)
[2016-11-12] MEDS: Pantoprazole 40 MG in Sodium Chloride 0.9% 10 ML IV SCH (14:40)
[2016-11-12] MEDS ORDERED: Ibuprofen 400 MG Tab PO PRN (14:49)
--- NOTE | 2016-11-12 14:55 | PCM.SN ---
- Free Text/Narrative Note: Patient requesting to advance diet. No longer having much pain and has not used pain medication since 0700. Will advance to CL, small sips tonight and monitor.
--- NOTE | 2016-11-12 17:33 | PCM.CONSN ---
- General Info Date of Service: 11/12/16 Admission Dx/Problem (Free Text): Diverticulitis with possible microperforation Subjective Update: Feeling better this morning when seen on rounds. Rates pain a "2". Passing gas. No BM this morning. No fever or chills. Functional Status: Reports: Pain Controlled, Ambulating, Urinating - Review of Systems General: Denies: Fever, Weakness, Fatigue HEENT: Reports: No Symptoms Pulmonary: Denies: Shortness of Breath, Pleuritic Chest Pain Cardiovascular: Reports: No Symptoms. Denies: Chest Pain Gastrointestinal: Reports: Abdominal Pain, Flatus. Denies: Constipation, Decreased Appetite, Diarrhea, Nausea, Vomiting Genitourinary: Reports: No Symptoms Musculoskeletal: Reports: No Symptoms Skin: Reports: No Symptoms Neurological: Reports: No Symptoms Psychiatric: Reports: No Symptoms - Patient Data Vitals - Most Recent: Last Vital Signs Temp 97.0 F 11/12/16 11:00 Pulse 67 11/12/16 11:00 Resp 14 11/12/16 11:00 BP 131/83 11/12/16 11:00 Pulse Ox 97 11/12/16 11:00 Weight - Most Recent: 204 lb 5.896 oz I&O - Last 24 Hours: Intake & Output 11/12/16 11/12/16 11/12/16 03:59 11:59 19:59 Intake Total 260 Balance 260 Med Orders - Current: Current Medications Acetaminophen (Tylenol) 650 mg PO Q6H PRN PRN Reason: pain/headache Last Admin: 11/12/16 11:51 Dose: 650 mg Levofloxacin/Dextrose 750 mg/ (Premix) 150 mls @ 100 mls/hr IV Q24H [facility] Last Admin: 11/12/16 12:16 Dose: 100 mls/hr Metronidazole 500 mg/ Premix 100 mls @ 100 mls/hr IV QID [facility] Last Admin: 11/12/16 11:01 Dose: 100 mls/hr Sodium Chloride (Normal Saline) 1,000 mls @ 125 mls/hr IV ASDIRECTED [facility] Last Admin: 11/12/16 09:38 Dose: 125 mls/hr Pantoprazole Sodium 40 mg/ (Sodium Chloride) 10 mls @ 300 mls/hr IV Q24H [facility] Last Admin: 11/12/16 14:40 Dose: 300 mls/hr Ibuprofen (Motrin) 400 mg PO Q6H PRN PRN Reason: Pain Last Admin: 11/12/16 15:48 Dose: 400 mg Morphine Sulfate (Morphine) 3 mg IVPUSH Q2H PRN PRN Reason: Pain (severe 7-10) Last Admin: 11/12/16 16:00 Dose: 3 mg Ondansetron HCl (Zofran) 4 mg IVPUSH Q4H PRN PRN Reason: Nausea Last Admin: 11/11/16 21:31 Dose: 4 mg Sodium Chloride (Saline Flush) 10 ml FLUSH ASDIRECTED PRN PRN Reason: Keep Vein Open Sodium Chloride (Saline Flush) 2.5 ml FLUSH ASDIRECTED PRN PRN Reason: Keep Vein Open Discontinued Medications Hydromorphone HCl (Dilaudid) 0.5 mg IVPUSH ONETIME ONE Stop: 11/11/16 09:48 Last Admin: 11/11/16 10:21 Dose: 0.5 mg Sodium Chloride (Normal Saline) 1,000 mls @ 999 mls/hr IV STAT ONE Stop: 11/11/16 10:47 Last Admin: 11/11/16 10:18 Dose: 999 mls/hr Levofloxacin/Dextrose 500 mg/ (Premix) 100 mls @ 100 mls/hr IV ONETIME ONE Stop: 11/11/16 13:31 Last Admin: 11/11/16 12:50 Dose: 100 mls/hr Metronidazole 500 mg/ Premix 100 mls @ 100 mls/hr IV ONETIME ONE Stop: 11/11/16 13:31 Last Admin: 11/11/16 13:45 Dose: 100 mls/hr Iopamidol (Isovue Multipack-370 (76%)) 70 ml IVPUSH ONETIME STA Stop: 11/11/16 11:10 Last Admin: 11/11/16 14:31 Dose: Not Given Ondansetron HCl (Zofran) 4 mg IVPUSH ONETIME ONE Stop: 11/11/16 09:48 Last Admin: 11/11/16 10:21 Dose: 4 mg - Exam General: Alert, Oriented, Cooperative, No Acute Distress HEENT: Pupils Equal, Pupils Reactive Neck: Supple Lungs: Clear to Auscultation, Normal Respiratory Effort Cardiovascular: Regular Rate, Regular Rhythm, No Murmurs. No: Tachycardia GI/Abdominal Exam: Normal Bowel Sounds, Soft, No Distention, Tender (mild LLQ tenderness). No: Distended, Guarding, Rigid, Rebound, Mass Back Exam: Normal Inspection Extremities: Normal Inspection Skin: Warm, Dry, Intact Neurological: No New Focal Deficit Psy/Mental Status: Alert, Normal Affect, Normal Mood Consult PN Assessment/Plan Procedures: Procedures ASSAY OF AMYLASE (07/14/16) ASSAY OF FREE THYROXINE (09/21/14) ASSAY OF LIPASE (04/27/16) ASSAY OF TROPONIN QUANT (04/27/16) ASSAY THYROID STIM HORMONE (09/21/14) C-REACTIVE PROTEIN (07/14/16) CHEST X-RAY 2VW FRONTAL&LATL (04/27/14) COMP SCREEN MAMMOGRAM ADD-ON (03/27/14) COMPLETE CBC W/AUTO DIFF WBC (07/14/16) COMPREHEN METABOLIC PANEL (07/14/16) CT ABD & PELV W/CONTRAST (04/27/16) CT ABD & PELVIS W/O CONTRAST (07/14/16) CT HEAD/BRAIN W/O DYE (04/27/14) CT UPPER EXTREMITY W/O DYE (05/31/15) DIAGNOSTIC COLONOSCOPY (09/10/16) DRUG TEST PRSMV DIR OPT OBS (05/27/16) ELECTROCARDIOGRAM TRACING (04/27/14) EMERGENCY DEPT VISIT (04/27/16) EMERGENCY DEPT VISIT (05/03/15) EMERGENCY DEPT VISIT (11/16/14) EMERGENCY DEPT VISIT (04/27/14) FREE ASSAY (FT-3) (09/21/14) HYDRATE IV INFUSION ADD-ON (04/27/16) INJ PARAVERT F JNT L/S 1 LEV (04/09/16) INJ PARAVERT F JNT L/S 2 LEV (04/09/16) INJECT SPINE LUMBAR/SACRAL (01/28/16) INJECTION FOR SHOULDER X-RAY (05/04/14) MRI CHEST SPINE W/O DYE (03/23/16) MRI JOINT UPR EXTR W/O&W/DYE (05/04/14) MRI LUMBAR SPINE W/O DYE (03/23/16) NEEDLE LOCALIZATION BY XRAY (05/04/14) RBC SED RATE AUTOMATED (07/14/16) ROUTINE VENIPUNCTURE (07/14/16) THER/PROPH/DIAG INJ IV PUSH (04/27/16) THER/PROPH/DIAG INJ SC/IM (05/03/15) TREAT SHOULDER DISLOCATION (07/26/15) TX/PRO/DX INJ NEW DRUG ADDON (04/27/16) TX/PRO/DX INJ SAME DRUG STONE POLISHER (11/16/14) URINALYSIS AUTO W/SCOPE (04/27/16) URINE TEST (09/10/16) X-RAY EXAM HIP UNI 2-3 VIEWS (05/05/16) X-RAY EXAM L-S SPINE 2/3 VWS (11/22/14) X-RAY EXAM OF FOOT (03/27/14) X-RAY EXAM OF HIP (11/22/14) X-RAY EXAM OF SHOULDER (07/26/15) (1) Perforation of sigmoid colon due to diverticulitis SNOMED Code(s): 3199563282630630 Code(s): K57.20 - DVTRCLI OF LG INT W PERFORATION AND ABSCESS W/O BLEEDING Priority: High Current Visit: Yes (2) Sigmoid diverticulitis SNOMED Code(s): 306328224 Code(s): K57.32 - DVTRCLI OF LG INT W/O PERFORATION OR ABSCESS W/O BLEEDING Priority: High Current Visit: Yes Problem List Initiated/Reviewed/Updated: Yes Plan: Would keep her NPO until pain is gone and abdomen is nontender. When patient is discharged she will need a full 10 days of po antibiotics.
[2016-11-12] MEDS: Ondansetron 4 MG/2 ML SDV IVPUSH PRN (20:25)
[2016-11-13 05:51] LABS: CHLORIDE,CL 111 mmol/L (98-110); SODIUM,NA 141 mmol/L (136-146)
[2016-11-13] MEDS: metroNIDAZOLE/Normal Saline 500 MG in Premix Bag 1 BAG IV SCH ×2 (05:54→11:09)
[2016-11-13] MEDS: Sodium Chloride 0.9% 1,000 ML IV SCH (08:08)
[2016-11-13 12:49] VITALS: BP 134/75
[2016-11-13] MEDS: Levofloxacin/Dextrose 5%-Water 750 MG in Premix Bag 1 BAG IV SCH (12:59)
[2016-11-13] MEDS: Pantoprazole 40 MG in Sodium Chloride 0.9% 10 ML IV SCH (15:14)
--- NOTE | 2016-11-13 15:38 | PCM.DCSUM1 ---
Discharge Summary - Hospital Course Brief History: This 51 year old female with pmh of diverticulitis presented to the ED with abdominal pain that started this morning. She reports the past few days she just hasn't felt right, slightly nauseated and having diarrhea. Her son has had a stomach flu so she felt like maybe she had that or something with urinary tract, because she has been voiding a lot. She denies fevers, chills or chest pain. She reports the pain started to LLQ as typical for her diverticulitis, she has had 2 bouts this year and recently had a colonoscopy with Dr. Walls in September. Which showed sigmoid diverticulosis. In the ED, no leukocytosis noted, CMP WNL. VS stable, afebrile. CT of abdomen revealed moderate colonic wall thickening with the proximal sigmoid region, adjacent stranding, multiple diverticula noted within this region. Trace adjacent fluid with a possible single foci of adjacent air, sigmoid diverticulitis with possible microperforation. Dr. Walls was consulted in the ED and will consult with admission. She was admitted for sigmoid diverticulitis with microperforation. PCP, Dr. Robledo - Discharge Data Discharge Date: 11/13/16 Discharge Disposition: Home, Self-Care 01 Condition: Good - Discharge Diagnosis/Problem(s) (1) Perforation of sigmoid colon due to diverticulitis SNOMED Code(s): 3739927877313452 ICD Code: K57.20 - DVTRCLI OF LG INT W PERFORATION AND ABSCESS W/O BLEEDING Status: Acute Priority: High Current Visit: Yes (2) Abdominal pain SNOMED Code(s): 18695120 ICD Code: R10.9 - UNSPECIFIED ABDOMINAL PAIN Status: Acute Current Visit : No (3) Diverticulosis SNOMED Code(s): 405997510 ICD Code: K57.90 - DVRTCLOS OF INTEST, PART UNSP, W/O PERF OR ABSCESS W/O BLEED Status: Chronic Current Visit: Yes Qualifiers: Diverticulosis site: diverticulosis of large intestine Diverticulosis bleeding: diverticulosis without bleeding Qualified Code(s): K57.30 - Diverticulosis of large intestine without perforation or abscess without bleeding - Patient Instructions Diet: GI Soft/Low Residue/Low Fiber (Keep FL to soft work the weekend and slowly advance to regular diet on Wednesday) Activity: As Tolerated Driving: May Drive Today Showering/Bathing: May Shower Notify Provider of: Fever, Increased Pain, Swelling and Redness, Drainage, Nausea and/or Vomiting - Discharge Plan Prescriptions/Med Rec: Levofloxacin [Levaquin] 750 mg PO DAILY #10 tab metroNIDAZOLE [Flagyl] 500 mg PO Q8H #30 tablet Home Medications: Home Meds Orphenadrine [Norflex] 100 mg PO BID PRN 11/11/16 [History] Levofloxacin [Levaquin] 750 mg PO DAILY #10 tab 11/13/16 [Rx] metroNIDAZOLE [Flagyl] 500 mg PO Q8H #30 tablet 11/13/16 [Rx] Patient Handouts: Diverticulitis, [id number], Levofloxacin tablets, Metronidazole tablets or capsules Referrals: Peter Walls MD [Physician] - 11/19/16 3:45 pm Gregg Robledo MD [Primary Care Provider] - 11/17/16 1:45 pm - Discharge Summary/Plan Comment DC Time >30 min.: No Discharge Summary/Plan Comment: Discharge Diagnoses: Sigmoid diverticulitis with microperforation Ina was admitted and treated with IV antibiotics, IVFs, and bowel rest. She used very little analgesia medication. She remained NPO for 24 hours and then once pain resolved she was advanced to CL diet and then to FL diet. She has tolerated this transition well without worsening pain or nausea. She is very eager for discharge home. She will be encouraged to keep with FL to soft bland diet over the weekend and slowly advance to low fiber regular diet. She is to follow up with Dr. Walls regarding further options with this being be 3rd diverticulitis flare this year. She has remained afebrile with no leukocytosis. She will be sent home with 10 more days of Levaquin and Flagyl. She was encouraged to return to ED or clinic if concerns should arise. - General Info Date of Service: 11/13/16 Admission Dx/Problem (Free Text: Diverticulitis with possible microperforation Subjective Update: Reports no pain or nausea. Tolerating diet well. Denies fevers, chest pain or SOB. Very eager for discharge today. Functional Status: Reports: Pain Controlled, Tolerating Diet, Ambulating, Urinating - Review of Systems General: Reports: No Symptoms. Denies: Fever, Weakness HEENT: Reports: No Symptoms. Denies: Headaches, Sinus Congestion, Visual Changes Pulmonary: Reports: No Symptoms. Denies: Shortness of Breath Cardiovascular: Reports: No Symptoms. Denies: Chest Pain, Palpitations Gastrointestinal: Reports: No Symptoms. Denies: Abdominal Pain Genitourinary: Reports: No Symptoms. Denies: Dysuria, Frequency, Burning, Pain Musculoskeletal: Reports: No Symptoms. Denies: Neck Pain Skin: Reports: No Symptoms Neurological: Reports: No Symptoms Psychiatric: Reports: No Symptoms - Patient Data Vitals - Most Recent: Last Vital Signs Temp 98.2 F 11/13/16 12:00 Pulse 74 11/13/16 12:00 Resp 16 11/13/16 12:00 BP 134/75 11/13/16 12:00 Pulse Ox 100 11/13/16 08:00 Weight - Most Recent: 92.7 kg I&O - Last 24 hours: Intake & Output 11/13/16 11/13/16 11/13/16 06:59 14:59 22:59 Intake Total 1025 1149 10 Output Total 2250 Balance -1225 1149 10 Lab Results - Last 24 hrs: Laboratory Results - last 24 hr 11/13/16 11/13/16 Range/Units 05:03 05:03 WBC 4.16 (4.0-11.0) K/uL RBC 4.24 L (4.30-5.90) M/uL Hgb 12.9 (12.0-16.0) g/dL Hct 39.2 (36.0-46.0) % MCV 92.5 (80.0-98.0) fL MCH 30.4 (27.0-32.0) pg MCHC 32.9 (31.0-37.0) g/dL RDW Std Deviation 42.4 (28.0-62.0) fl RDW Coeff of [place] 13 (11.0-15.0) % Plt Count 198 (150-400) K/uL MPV 10.20 (7.40-12.00) fL Neut % (Auto) 49.3 (48.0-80.0) % Lymph % (Auto) 35.8 (16.0-40.0) % [place] % (Auto) 11.3 (0.0-15.0) % Eos % (Auto) 3.4 (0.0-7.0) % Baso % (Auto) 0.2 (0.0-1.5) % Neut # (Auto) 2.1 (1.4-5.7) K/uL Lymph # (Auto) 1.5 (0.6-2.4) K/uL [place] # (Auto) 0.5 (0.0-0.8) K/uL Eos # (Auto) 0.1 (0.0-0.7) K/uL Baso # (Auto) 0.0 (0.0-0.1) K/uL Nucleated RBC % 0.0 /100WBC Nucleated RBCs # 0 K/uL Sodium 141 (136-146) mmol/L Potassium 4.0 (3.5-5.1) mmol/L Chloride 111 H (98-110) mmol/L Carbon Dioxide 26 (21-31) mmol/L BUN 8 (6.0-23.0) mg/dL Creatinine 0.9 (0.6-1.5) mg/dL Est Cr Clr Drug Dosing 67.67 mL/min Estimated GFR (MDRD) > 60.0 ml/min Glucose 91 (60-110) mg/dL Calcium 8.8 (8.8-10.8) mg/dL Med Orders - Current: Current Medications Acetaminophen (Tylenol) 650 mg PO Q6H PRN PRN Reason: pain/headache Last Admin: 11/12/16 11:51 Dose: 650 mg Levofloxacin/Dextrose 750 mg/ (Premix) 150 mls @ 100 mls/hr IV Q24H [facility] Last Admin: 11/13/16 12:59 Dose: 100 mls/hr Metronidazole 500 mg/ Premix 100 mls @ 100 mls/hr IV QID [facility] Last Admin: 11/13/16 11:09 Dose: 100 mls/hr Pantoprazole Sodium 40 mg/ (Sodium Chloride) 10 mls @ 300 mls/hr IV Q24H [facility] Last Admin: 11/13/16 15:14 Dose: 300 mls/hr Ibuprofen (Motrin) 400 mg PO Q6H PRN PRN Reason: Pain Last Admin: 11/12/16 15:48 Dose: 400 mg Morphine Sulfate (Morphine) 3 mg IVPUSH Q2H PRN PRN Reason: Pain (severe 7-10) Last Admin: 11/12/16 16:00 Dose: 3 mg Ondansetron HCl (Zofran) 4 mg IVPUSH Q4H PRN PRN Reason: Nausea Last Admin: 11/12/16 20:25 Dose: 4 mg Sodium Chloride (Saline Flush) 10 ml FLUSH ASDIRECTED PRN PRN Reason: Keep Vein Open Sodium Chloride (Saline Flush) 2.5 ml FLUSH ASDIRECTED PRN PRN Reason: Keep Vein Open Discontinued Medications Hydromorphone HCl (Dilaudid) 0.5 mg IVPUSH ONETIME ONE Stop: 11/11/16 09:48 Last Admin: 11/11/16 10:21 Dose: 0.5 mg Sodium Chloride (Normal Saline) 1,000 mls @ 999 mls/hr IV STAT ONE Stop: 11/11/16 10:47 Last Admin: 11/11/16 10:18 Dose: 999 mls/hr Levofloxacin/Dextrose 500 mg/ (Premix) 100 mls @ 100 mls/hr IV ONETIME ONE Stop: 11/11/16 13:31 Last Admin: 11/11/16 12:50 Dose: 100 mls/hr Metronidazole 500 mg/ Premix 100 mls @ 100 mls/hr IV ONETIME ONE Stop: 11/11/16 13:31 Last Admin: 11/11/16 13:45 Dose: 100 mls/hr Sodium Chloride (Normal Saline) 1,000 mls @ 125 mls/hr IV ASDIRECTED [facility] Last Admin: 11/13/16 08:08 Dose: 125 mls/hr Iopamidol (Isovue Multipack-370 (76%)) 70 ml IVPUSH ONETIME STA Stop: 11/11/16 11:10 Last Admin: 11/11/16 14:31 Dose: Not Given Ondansetron HCl (Zofran) 4 mg IVPUSH ONETIME ONE Stop: 11/11/16 09:48 Last Admin: 11/11/16 10:21 Dose: 4 mg - Exam General: Reports: Alert, Oriented, Cooperative HEENT: Reports: Pupils Equal, Pupils Reactive, EOMI, Mucous Membr. Moist/[place] Lungs: Reports: Clear to Auscultation, Normal Respiratory Effort Cardiovascular: Reports: Regular Rate, Regular Rhythm GI/Abdominal Exam: Normal Bowel Sounds, Soft, Non-Tender, No Organomegaly, No Distention, No Abnormal Bruit, No Mass, Pelvis Stable Extremities: Normal Inspection, Normal Range of Motion, Non-Tender, No Pedal Edema, Normal Capillary Refill Skin: Reports: Warm, Dry, Intact Psy/Mental Status: Reports: Alert, Normal Affect, Normal Mood *Q Meaningful Use (DIS) - VTE *Q VTE Criteria *Q: - Stroke *Q Stroke Criteria *Q: - AMI *Q AMI Criteria *Q:
--- NOTE | 2016-11-13 16:44 | PCM.SN ---
- Free Text/Narrative Note: Patient feels better today. Denies pain. No N/V. Diarrhea, no bleeding. ASSESSMENT: Markedly improved from microperforation and diverticulitis. Again stressed the importance of dietary management.
== END 2016-11-13 16:00 | disposition home or self-care (01) | DRG 392 ==
LOC: MW.ED 09:14 → MW.MS 12:53 → OBSVTOIN 11-12 10:32
PROVIDERS: ADMIT Internal Medicine; ATTEND Internal Medicine
DX: K57.20 Diverticulitis of large intestine with perforation and abscess without bleeding (principal); Z79.899 Other long term (current) drug therapy
CPT/HCPCS: 36415; 74177; 74177-26; 80048; 80053; 81001; 85025; 96361; 96365; 96366; 96367; 96375; 96376; 99283; 99285-25; A9270-GY; C9113; G0378; J1170; J1956; J2270; J2405; J7040

== ENCOUNTER 2017-06-13 08:41 | Emergency (ER) | payer OTHER ==
[2017-06-13] MEDS ORDERED: Ketorolac 60 MG/2 ML SDV IM ONE (09:04)
--- NOTE | 2017-06-13 09:04 | EDM.PDOC ---
ED HPI GENERAL MEDICAL PROBLEM - General Chief Complaint: Genitourinary Problem Stated Complaint: POSSIBLE UTI Time Seen by Provider: 06/13/17 08:57 Source of Information: Reports: Patient History Limitations: Reports: No Limitations - History of Present Illness INITIAL COMMENTS - FREE TEXT/NARRATIVE: History of present illness: []Patient started having burning with urination yesterday. She also has sinus pressure and pain. Has been having fevers to 101 and has taken 2 doses of Pyridium and Flagyl that she had left over from a bout of diverticulitis in the past.. Review of systems: As per history of present illness and below otherwise all systems reviewed and negative. Past medical history: As per history of present illness and as reviewed below otherwise noncontributory. Surgical history: As per history of present illness and as reviewed below otherwise noncontributory. Social history: No reported history of drug or alcohol abuse. Family history: As per history of present illness and as reviewed below otherwise noncontributory. Physical exam: General: Well developed, well nourished in NAD HEENT: Atraumatic, normocephalic, pupils reactive, negative for conjunctival pallor or scleral icterus, mucous membranes moist, throat clear, neck supple, nontender, trachea midline. Lungs: Clear to auscultation, breath sounds equal bilaterally, chest nontender. Heart: S1S2, regular, negative for clicks, rubs, or JVD. Abdomen: Soft, nondistended, nontender. Negative for masses or hepatosplenomegaly. Negative for costovertebral tenderness. Pelvis: Stable nontender. Genitourinary: Deferred. Rectal: Deferred. Extremities: Atraumatic, negative for cords or calf pain. Neurovascular unremarkable. Neuro: Awake, alert, oriented. Cranial nerves II through XII unremarkable. Cerebellum unremarkable. Motor and sensory unremarkable throughout. Exam nonfocal. Diagnostics: [] Therapeutics: [] Impression: [] Plan: [] Definitive disposition and diagnosis as appropriate pending reevaluation and review of above. Pelvic Pain Score (Numeric/FACES): 8 - Related Data Allergies Allergy/AdvReac Type Severity Reaction Status Date / Time No Known Allergies Allergy Verified 06/13/17 08:54 Home Meds: Home Meds metroNIDAZOLE [Flagyl] 500 mg PO Q8H #30 tablet 11/13/16 [Rx] Phentermine HCl 37.5 mg PO DAILY 06/13/17 [History] Sulfamethoxazole/Trimethoprim [Sulfamethoxazole-Tmp Ss Tablet] 1 each PO BID # 20 tablet 06/13/17 [Rx] Past Medical History - Past Health History Medical/Surgical History: Denies Medical/Surgical History HEENT History: Reports: None Cardiovascular History: Reports: None Respiratory History: Reports: None Gastrointestinal History: Reports: Diverticulosis Other Gastrointestinal History: hx diverticulitis Genitourinary History: Reports: None [employer] History: Reports: Musculoskeletal History: Reports: Back Pain, Chronic, Other (See Below) Neurological History: Reports: Other (See Below) Other Neuro History: Nerve pain r/t chronic back pain Psychiatric History: Reports: None Endocrine/Metabolic History: Reports: Obesity/BMI 30+ Hematologic History: Reports: Anemia, Blood Transfusion(s) Other Hematologic History: states transfusion when she was young, 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 Immunologic History: Reports: None Oncologic (Cancer) History: Reports: None Dermatologic History: Reports: None - Infectious Disease History Infectious Disease History: Reports: Chicken Pox - Past Surgical History Head Surgeries/Procedures: Reports: None HEENT Surgical History: Reports: Adenoidectomy, Tonsillectomy GI Surgical History: Reports: Cholecystectomy, Colonoscopy Female Surgical History: Reports: Section Musculoskeletal Surgical History: Reports: Arthroscopic Knee, Shoulder Surgery, Other (See Below) Other Musculoskeletal Surgeries/Procedures:: Right knee surgery for meniscus repair, right rotator cuff repair Social & Family History - Family History Family Medical History: Noncontributory - Tobacco Use Smoking Status *Q: Never Smoker Years of Tobacco use: 0 Packs/Tins Daily: 0 Second Hand Smoke Exposure: No - Caffeine Use Caffeine Use: Reports: Soda Other Caffeine Use: 4 cans a day - Alcohol Use Days Per Week of Alcohol Use: 1 Number of Drinks Per Day: 3 Total Drinks Per Week: 3 - Recreational Drug Use Recreational Drug Use: No - Living Situation & Occupation Living situation: Reports: with Significant Other, with Family 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) ED ROS GENERAL - Review of Systems Review Of Systems: See Below (See history of present illness) ED EXAM, RENAL/ - Physical Exam Exam: See Below (See history of present illness) Course - Vital Signs Last Recorded V/S: Last Vital Signs Temp 96.5 F 06/13/17 08:51 Pulse 96 06/13/17 08:51 Resp 18 06/13/17 08:51 BP 130/95 H 06/13/17 08:51 Pulse Ox 97 06/13/17 08:51 - Orders/Labs/Meds Orders: Active Orders 24 hr Category Date Time Status UA W/MICROSCOPIC [URIN] Stat Lab 06/13/17 08:50 Ordered Labs: Laboratory Tests 06/13/17 Range/Units 08:50 Urine Color ORANGE Urine Appearance CLOUDY Urine pH 6.0 (5.0-8.0) Ur Specific [place] 1.015 (1.001-1.035) Urine Protein NEGATIVE (NEGATIVE) mg/dL Urine Glucose (UA) NEGATIVE (NEGATIVE) mg/dL Urine Ketones NEGATIVE (NEGATIVE) mg/dL Urine Occult Blood MODERATE (NEGATIVE) Urine Nitrite NEGATIVE (NEGATIVE) Urine Bilirubin NEGATIVE (NEGATIVE) Urine Urobilinogen 0.2 (<2.0) EU/dL Ur Leukocyte Esterase MODERATE (NEGATIVE) Urine RBC 5-10 (0-2/HPF) Urine WBC 50-75 (0-5/HPF) Ur Squamous Epith Cells MANY Urine Bacteria 2+ H (NEGATIVE) Urine Mucus MODERATE (NONE-MOD) Meds: Medications Discontinued Medications Generic Name Dose Route Start Last Admin Trade Name Freq PRN Reason Stop Dose Admin Ketorolac Tromethamine 60 mg 06/13/17 09:04 06/13/17 09:14 Toradol IM 06/13/17 09:05 60 mg ONETIME ONE Administration Departure - Departure Time of Disposition: 09:19 Disposition: Home, Self-Care 01 Condition: Good Clinical Impression: UTI (urinary tract infection) Qualifiers: Urinary tract infection type: site unspecified Hematuria presence: with hematuria Qualified Code(s): N39.0 - Urinary tract infection, site not specified ; R31.9 - Hematuria, unspecified - Discharge Information Prescriptions: Sulfamethoxazole/Trimethoprim [Sulfamethoxazole-Tmp Ss Tablet] 1 each PO BID # 20 tablet Referrals: Gregg Robledo MD [Primary Care Provider] - Forms: ED Department Discharge Additional Instructions: The following information is given to patients seen in the emergency department who are being discharged to home. This information is to outline your options for follow-up care. We provide all patients seen in our emergency department with a follow-up referral. The need for follow-up, as well as the timing and circumstances, are variable depending upon the specifics of your emergency department visit. If you don't have a primary care physician on staff, we will provide you with a referral. We always advise you to contact your personal physician following an emergency department visit to inform them of the circumstance of the visit and for follow-up with them and/or the need for any referrals to a consulting specialist. The emergency department will also refer you to a specialist when appropriate. This referral assures that you have the opportunity for follow-up care with a specialist. All of these measure are taken in an effort to provide you with optimal care, which includes your follow-up. Under all circumstances we always encourage you to contact your private physician who remains a resource for coordinating your care. When calling for follow-up care, please make the office aware that this follow-up is from your recent emergency room visit. If for any reason you are refused follow-up, please contact the [facility] Emergency Department at and asked to speak to the emergency department charge nurse. Septra twice a day, ibuprofen and Tylenol for any fevers follow-up with primary care increase fluids and return if symptoms worsen or change [facility] [address] [place] [address] - My Orders Last 24 Hours: My Active Orders 06/13/17 08:50 UA W/MICROSCOPIC [URIN] Stat - Assessment/Plan Last 24 Hours: My Active Orders 06/13/17 08:50 UA W/MICROSCOPIC [URIN] Stat
[2017-06-13 09:42] VITALS: BP 131/85
== END 2017-06-13 09:35 | disposition home or self-care (01) ==
LOC: MW.ED 08:41
DX: N39.0 Urinary tract infection, site not specified (principal); Z79.899 Other long term (current) drug therapy
CPT/HCPCS: 81001; 96372; 99283; J1885

== ENCOUNTER 2017-07-17 13:52 | Emergency (ER) | payer OTHER ==
[2017-07-17] MEDS ORDERED: Famotidine 20 MG/2 ML SDV IVPUSH ONE (14:01)
[2017-07-17] MEDS ORDERED: Sodium Chloride 0.9% 10 ML Syringe FLUSH PRN (14:01)
[2017-07-17] MEDS ORDERED: Sodium Chloride 0.9% 2.5 ML Syringe FLUSH PRN (14:01)
[2017-07-17] MEDS ORDERED: methylPREDNISolone Sodium Succinate 125 MG/2 ML SDV IVPUSH ONE (14:01)
[2017-07-17] MEDS ORDERED: diphenhydrAMINE 50 MG/ML SDV IVPUSH ONE (14:01)
[2017-07-17] MEDS ORDERED: Sodium Chloride 0.9% 1,000 ML IV ONE (14:02)
--- NOTE | 2017-07-17 14:10 | EDM.PDOC ---
ED HPI GENERAL MEDICAL PROBLEM - General Chief Complaint: Allergic Reaction Stated Complaint: ALLERGIC REACTION Time Seen by Provider: 07/17/17 13:54 Source of Information: Reports: Patient History Limitations: Reports: No Limitations - History of Present Illness INITIAL COMMENTS - FREE TEXT/NARRATIVE: History of present illness: []Patient was diagnosed with UTI month ago and put on Bactrim which she did not complete. Her feeling symptoms recur and started taking the residual back today 30 minutes prior to arrival. 5 minutes after taking the first pill she started to have severe burning of her skin and itchiness in her throat. Review of systems: As per history of present illness and below otherwise all systems reviewed and negative. Past medical history: As per history of present illness and as reviewed below otherwise noncontributory. Surgical history: As per history of present illness and as reviewed below otherwise noncontributory. Social history: No reported history of drug or alcohol abuse. Family history: As per history of present illness and as reviewed below otherwise noncontributory. Physical exam: General: Well developed, well nourished in NAD HEENT: Atraumatic, normocephalic, pupils reactive, negative for conjunctival pallor or scleral icterus, mucous membranes moist, throat clear, neck supple, nontender, trachea midline. No stridor Lungs: Clear to auscultation, breath sounds equal bilaterally, chest nontender. No wheezing Heart: S1S2, regular, negative for clicks, rubs, or JVD. Abdomen: Soft, nondistended, nontender. Negative for masses or hepatosplenomegaly. Negative for costovertebral tenderness. Pelvis: Stable nontender. Genitourinary: Deferred. Rectal: Deferred. Extremities: Atraumatic, negative for cords or calf pain. Neurovascular unremarkable. Neuro: Awake, alert, oriented. Exam nonfocal. Skin: Flushed throughout Diagnostics: []UA Therapeutics: []Liter of fluid, Benadryl, Solu-Medrol, Pepcid, 1 g Rocephin IV. Impression: []Allergic reaction to sulfa, UTI Plan: []do Not take sulfa, Benadryl every 4 hours Definitive disposition and diagnosis as appropriate pending reevaluation and review of above. - Related Data Allergies Allergy/AdvReac Type Severity Reaction Status Date / Time Sulfa (Sulfonamide Allergy Itching Verified 07/17/17 15:56 Antibiotics) Home Meds: Home Meds Phentermine HCl 37.5 mg PO DAILY 06/13/17 [History] Past Medical History - Past Health History Medical/Surgical History: Denies Medical/Surgical History HEENT History: Reports: None Cardiovascular History: Reports: None Respiratory History: Reports: None Gastrointestinal History: Reports: Diverticulosis Other Gastrointestinal History: hx diverticulitis Genitourinary History: Reports: None LOT BOSS History: Reports: Musculoskeletal History: Reports: Back Pain, Chronic, Other (See Below) Neurological History: Reports: Other (See Below) Other Neuro History: Nerve pain r/t chronic back pain Psychiatric History: Reports: None Endocrine/Metabolic History: Reports: Obesity/BMI 30+ Hematologic History: Reports: Anemia, Blood Transfusion(s) Other Hematologic History: states transfusion when she was young, 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 Immunologic History: Reports: None Oncologic (Cancer) History: Reports: None Dermatologic History: Reports: None - Infectious Disease History Infectious Disease History: Reports: Chicken Pox - Past Surgical History Head Surgeries/Procedures: Reports: None HEENT Surgical History: Reports: Adenoidectomy, Tonsillectomy GI Surgical History: Reports: Cholecystectomy, Colonoscopy Female Surgical History: Reports: Section Musculoskeletal Surgical History: Reports: Arthroscopic Knee, Shoulder Surgery, Other (See Below) Other Musculoskeletal Surgeries/Procedures:: Right knee surgery for meniscus repair, right rotator cuff repair Social & Family History - Family History Family Medical History: Noncontributory - Caffeine Use Caffeine Use: Reports: Soda Other Caffeine Use: 4 cans a day - Living Situation & Occupation Living situation: Reports: with Significant Other, with Family 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) ED ROS ALLERGIC REACTION - Review of Systems Review Of Systems: See Below (See history of present illness) ED EXAM GENERAL NO PERIP PULSE - Physical Exam Exam: See Below (See history of present illness) Course - Vital Signs Last Recorded V/S: Last Vital Signs Temp 97.0 F 07/17/17 14:05 Pulse 99 07/17/17 16:22 Resp 18 07/17/17 16:22 BP 135/92 H 07/17/17 16:22 Pulse Ox 99 07/17/17 16:22 - Orders/Labs/Meds Orders: Active Orders 24 hr Category Date Time Status UA W/MICROSCOPIC [URIN] Stat Lab 07/17/17 15:10 Ordered Sodium Chloride 0.9% [Saline Flush] Med 07/17/17 14:01 Active 10 ml FLUSH ASDIRECTED PRN Sodium Chloride 0.9% [Saline Flush] Med 07/17/17 14:01 Active 2.5 ml FLUSH ASDIRECTED PRN Saline Lock Insert [OM.PC] Stat Oth 07/17/17 14:01 Ordered Medication Orders Sodium Chloride (Saline Flush) 10 ml FLUSH ASDIRECTED PRN PRN Reason: Keep Vein Open Last Admin: 07/17/17 14:18 Dose: 10 ml Sodium Chloride (Saline Flush) 2.5 ml FLUSH ASDIRECTED PRN PRN Reason: Keep Vein Open Last Admin: 07/17/17 14:18 Dose: 2.5 ml Labs: Laboratory Tests 07/17/17 Range/Units 15:10 Urine Color YELLOW Urine Appearance CLEAR Urine pH 5.5 (5.0-8.0) Ur Specific [place] >= 1.030 (1.001-1.035) Urine Protein TRACE (NEGATIVE) mg/dL Urine Glucose (UA) NEGATIVE (NEGATIVE) mg/dL Urine Ketones TRACE H (NEGATIVE) mg/dL Urine Occult Blood NEGATIVE (NEGATIVE) Urine Nitrite NEGATIVE (NEGATIVE) Urine Bilirubin SMALL H (NEGATIVE) Urine Ictotest NEGATIVE Urine Urobilinogen 1.0 (<2.0) EU/dL Ur Leukocyte Esterase SMALL (NEGATIVE) Urine RBC 2-4 (0-2/HPF) Urine WBC 10-15 (0-5/HPF) Ur Epithelial Cells MODERATE (NONE-FEW) Urine Bacteria FEW (NEGATIVE) Meds: Medications Generic Name Dose Route Start Last Admin Trade Name Freq PRN Reason Stop Dose Admin Sodium Chloride 10 ml 07/17/17 14:01 07/17/17 14:18 Saline Flush FLUSH 10 ml ASDIRECTED PRN Administration Keep Vein Open Sodium Chloride 2.5 ml 07/17/17 14:01 07/17/17 14:18 Saline Flush FLUSH 2.5 ml ASDIRECTED PRN Administration Keep Vein Open Discontinued Medications Generic Name Dose Route Start Last Admin Trade Name Freq PRN Reason Stop Dose Admin Diphenhydramine HCl 25 mg 07/17/17 14:01 07/17/17 14:17 Benadryl IVPUSH 07/17/17 14:02 25 mg ONETIME ONE Administration Famotidine 20 mg 07/17/17 14:01 07/17/17 14:17 Pepcid IVPUSH 07/17/17 14:02 20 mg ONETIME ONE Administration Sodium Chloride 1,000 mls @ 999 mls/hr 07/17/17 14:02 07/17/17 14:18 Normal Saline IV 07/17/17 15:02 999 mls/hr .Bolus ONE Administration Ceftriaxone Sodium/Dextrose 1 50 mls @ 100 mls/hr 07/17/17 15:37 gm/ Premix IV 07/17/17 16:06 ONETIME ONE Ceftriaxone Sodium 1 gm/ 50 mls @ 100 mls/hr 07/17/17 15:56 07/17/17 16:15 Sodium Chloride IV 07/17/17 16:06 100 mls/hr ONETIME ONE Administration Methylprednisolone Sodium Succinate 125 mg 07/17/17 14:01 07/17/17 14:17 Solu-Medrol IVPUSH 07/17/17 14:02 125 mg ONETIME ONE Administration Departure - Departure Time of Disposition: 07:27 Disposition: Home, Self-Care 01 Condition: Good Clinical Impression: Allergic reaction caused by a drug Qualifiers: Encounter type: initial encounter Qualified Code(s): T78.40XA - Allergy, unspecified, initial encounter UTI (urinary tract infection) Qualifiers: Urinary tract infection type: site unspecified Hematuria presence: with hematuria Qualified Code(s): N39.0 - Urinary tract infection, site not specified - Discharge Information Instructions: Allergies, Adult, [id number], Urinary Tract Infection, Adult Referrals: PCP,Unknown [Primary Care Provider] - Forms: ED Department Discharge Additional Instructions: The following information is given to patients seen in the emergency department who are being discharged to home. This information is to outline your options for follow-up care. We provide all patients seen in our emergency department with a follow-up referral. The need for follow-up, as well as the timing and circumstances, are variable depending upon the specifics of your emergency department visit. If you don't have a primary care physician on staff, we will provide you with a referral. We always advise you to contact your personal physician following an emergency department visit to inform them of the circumstance of the visit and for follow-up with them and/or the need for any referrals to a consulting specialist. The emergency department will also refer you to a specialist when appropriate. This referral assures that you have the opportunity for follow-up care with a specialist. All of these measure are taken in an effort to provide you with optimal care, which includes your follow-up. Under all circumstances we always encourage you to contact your private physician who remains a resource for coordinating your care. When calling for follow-up care, please make the office aware that this follow-up is from your recent emergency room visit. If for any reason you are refused follow-up, please contact the Emergency Department at and asked to speak to the emergency department charge nurse. Do not take sulfa because you are allergic to it. Continue Benadryl every 4 hours, Pepcid twice a day for allergy symptoms increase fluids and follow-up with primary care. - My Orders Last 24 Hours: My Active Orders 07/17/17 14:01 Sodium Chloride 0.9% [Saline Flush] 10 ml FLUSH ASDIRECTED PRN Sodium Chloride 0.9% [Saline Flush] 2.5 ml FLUSH ASDIRECTED PRN Saline Lock Insert [OM.PC] Stat 07/17/17 15:10 UA W/MICROSCOPIC [URIN] Stat - Assessment/Plan Last 24 Hours: My Active Orders 07/17/17 14:01 Sodium Chloride 0.9% [Saline Flush] 10 ml FLUSH ASDIRECTED PRN Sodium Chloride 0.9% [Saline Flush] 2.5 ml FLUSH ASDIRECTED PRN Saline Lock Insert [OM.PC] Stat 07/17/17 15:10 UA W/MICROSCOPIC [URIN] Stat
[2017-07-17] MEDS ORDERED: cefTRIAXone 1 GM in Premix Bag 1 BAG IV ONE (15:37)
[2017-07-17] MEDS ORDERED: cefTRIAXone 1 GM in Sodium Chloride 0.9% 50 ML IV ONE (15:56)
[2017-07-17 16:23] VITALS: BP 135/92
== END 2017-07-17 17:00 | disposition home or self-care (01) ==
LOC: MW.ED 13:52
DX: R39.89 Other symptoms and signs involving the genitourinary system (principal); T37.0X5A Adverse effect of sulfonamides, initial encounter; N39.0 Urinary tract infection, site not specified; D64.9 Anemia, unspecified; Z79.899 Other long term (current) drug therapy
CPT/HCPCS: 81001; 96365; 96375; 99283; J0696; J1200; J2930; J7040; J7050

== ENCOUNTER 2018-07-02 16:09 | Emergency (ER) | payer OTHER ==
[2018-07-02] MEDS ORDERED: Ketorolac 60 MG/2 ML SDV IM ONE (16:34)
--- NOTE | 2018-07-02 17:38 | CR ---
INDICATION: Shoulder pain. TECHNIQUE: Two views left shoulder. COMPARISON: None FINDINGS: Bones: No acute fracture. No dislocation. No AC separation No suspicious bone lesion. Joint spaces: AC joint and glenohumeral joint spaces are preserved. Soft tissues: Unremarkable. IMPRESSION: No acute osseous abnormality. Dictated by Robi Mancilla MD @ 07/02/2018 5:35:25 PM Dictated by: Robi Mancilla MD @ 07/02/2018 17:35:30 (Electronically Signed)
--- NOTE | 2018-07-02 17:45 | EDM.PDOC ---
ED HPI GENERAL MEDICAL PROBLEM - General Chief Complaint: Upper Extremity Injury/Pain Stated Complaint: DISLOCATED SHOULDER LT SIDE Time Seen by Provider: 07/02/18 17:42 Source of Information: Reports: Patient - History of Present Illness INITIAL COMMENTS - FREE TEXT/NARRATIVE: HISTORY AND PHYSICAL: History of present illness: Patient presents with complaint of dislocated left arm She states she fell and felt the shoulder slipped out of socket she tried to place it back in and presents as such 8 out of 10 pain no head injury or loss consciousness no fever nausea vomiting chills sweats entire limb neurovascularly intact Review of systems: As per history of present illness and below otherwise all systems reviewed and negative. Past medical history: As per history of present illness and as reviewed below otherwise noncontributory. Surgical history: As per history of present illness and as reviewed below otherwise noncontributory. Social history: No reported history of drug or alcohol abuse. Family history: As per history of present illness and as reviewed below otherwise noncontributory. Physical exam: HEENT: Atraumatic, normocephalic, pupils reactive, negative for conjunctival pallor or scleral icterus, mucous membranes moist, throat clear, neck supple, nontender, trachea midline. Lungs: Clear to auscultation, breath sounds equal bilaterally, chest nontender. Heart: S1S2, regular, negative for clicks, rubs, or JVD. Abdomen: Soft, nondistended, nontender. Negative for masses or hepatosplenomegaly. Negative for costovertebral tenderness. Pelvis: Stable nontender. Genitourinary: Deferred. Rectal: Deferred. Extremities: Atraumatic, negative for cords or calf pain. Neurovascular unremarkable. Neuro: Awake, alert, oriented. Cranial nerves II through XII unremarkable. Cerebellum unremarkable. Motor and sensory unremarkable throughout. Exam nonfocal. Diagnostics: [ left shoulder reviews ] Therapeutics: [ all 60 IM Toradol 10 mg #15 Sling for comfort ] Impression: [ left shoulder injury ] Definitive disposition and diagnosis as appropriate pending reevaluation and review of above. left shoulder Pain Score (Numeric/FACES): 10 - Related Data Allergies Allergy/AdvReac Type Severity Reaction Status Date / Time Sulfa (Sulfonamide Allergy Itching Verified 03/19/18 09:27 Antibiotics) Home Meds: Home Meds Phentermine HCl 37.5 mg PO DAILY 03/19/18 [History] Past Medical History - Past Health History Medical/Surgical History: Denies Medical/Surgical History HEENT History: Reports: None Cardiovascular History: Reports: None Respiratory History: Reports: None Gastrointestinal History: Reports: Diverticulosis Other Gastrointestinal History: hx diverticulitis Genitourinary History: Reports: None APPLIED PSYCHOLOGY CHAIR History: Reports: Musculoskeletal History: Reports: Back Pain, Chronic, Other (See Below) Neurological History: Reports: Other (See Below) Other Neuro History: Nerve pain r/t chronic back pain Psychiatric History: Reports: None Endocrine/Metabolic History: Reports: Obesity/BMI 30+ Hematologic History: Reports: Anemia, Blood Transfusion(s) Other Hematologic History: states transfusion when she was young, 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 Immunologic History: Reports: None Oncologic (Cancer) History: Reports: None Dermatologic History: Reports: None - Infectious Disease History Infectious Disease History: Reports: Chicken Pox - Past Surgical History Head Surgeries/Procedures: Reports: None HEENT Surgical History: Reports: Adenoidectomy, Tonsillectomy Cardiovascular Surgical History: Reports: None Respiratory Surgical History: Reports: None GI Surgical History: Reports: Cholecystectomy, Colonoscopy Female Surgical History: Reports: Section Endocrine Surgical History: Reports: None Neurological Surgical History: Reports: None Musculoskeletal Surgical History: Reports: Arthroscopic Knee, Knee Replacement, Shoulder Surgery, Other (See Below) Other Musculoskeletal Surgeries/Procedures:: Right knee surgery for meniscus repair, right rotator cuff repair Oncologic Surgical History: Reports: None Dermatological Surgical History: Reports: None Social & Family History - Family History Family Medical History: Noncontributory HEENT: Reports: None Cardiac: Reports: None Oncologic: Reports: None - Tobacco Use Smoking Status *Q: Never Smoker - Caffeine Use Caffeine Use: Reports: Soda Other Caffeine Use: 4 cans a day - Recreational Drug Use Recreational Drug Use: No - Living Situation & Occupation Living situation: Reports: with Significant Other, with Family 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) Review of Systems - Review of Systems Review Of Systems: See Below ED EXAM, GENERAL - Physical Exam Exam: See Below Course - Vital Signs Last Recorded V/S: Last Vital Signs Temp 96 F 07/02/18 16:32 Pulse 66 07/02/18 16:32 Resp 22 H 07/02/18 16:32 BP 180/101 H 07/02/18 16:32 Pulse Ox 98 07/02/18 16:32 - Orders/Labs/Meds Meds: Medications Discontinued Medications Generic Name Dose Route Start Last Admin Trade Name Josefina PRN Reason Stop Dose Admin Ketorolac Tromethamine 60 mg 07/02/18 16:34 07/02/18 16:46 Toradol IM 07/02/18 16:35 60 mg ONETIME ONE Administration Departure - Departure Time of Disposition: 17:44 Disposition: Home, Self-Care 01 Condition: Good Clinical Impression: Injury of left shoulder - Discharge Information Referrals: PCP,None [Primary Care Provider] - Additional Instructions: Medication as prescribed Ice 20 minute intervals 3 times daily as needed Sling for comfort Follow up with orthopedist, call phone number below to schedule appropriate follow-up [facility] [address], [address] [place] [address] my orthopedic The following information is given to patients seen in the emergency department who are being discharged to home. This information is to outline your options for follow-up care. We provide all patients seen in our emergency department with a follow-up referral. The need for follow-up, as well as the timing and circumstances, are variable depending upon the specifics of your emergency department visit. If you don't have a primary care physician on staff, we will provide you with a referral. We always advise you to contact your personal physician following an emergency department visit to inform them of the circumstance of the visit and for follow-up with them and/or the need for any referrals to a consulting specialist. The emergency department will also refer you to a specialist when appropriate. This referral assures that you have the opportunity for follow-up care with a specialist. All of these measure are taken in an effort to provide you with optimal care, which includes your follow-up. Under all circumstances we always encourage you to contact your private physician who remains a resource for coordinating your care. When calling for follow-up care, please make the office aware that this follow-up is from your recent emergency room visit. If for any reason you are refused follow-up, please contact the [facility] emergency department at and asked to speak to the emergency department charge nurse.
[2018-07-02 18:30] VITALS: BP 134/87
== END 2018-07-02 18:31 | disposition home or self-care (01) ==
LOC: MW.ED 16:09
DX: S49.92XA Unspecified injury of left shoulder and upper arm, initial encounter (principal); E66.9 Obesity, unspecified; Z88.2 Allergy status to sulfonamides; Z79.899 Other long term (current) drug therapy; Z68.31 Body mass index [BMI] 31.0-31.9, adult; X58.XXXA Exposure to other specified factors, initial encounter
CPT/HCPCS: 73030; 96372; 99283; J1885

== ENCOUNTER 2018-12-28 08:23 | Emergency (ER) | payer OTHER ==
[2018-12-28 09:28] LABS: CARBON DIOXIDE,CO2 24.8 mmol/L (21.0-32.0)
--- NOTE | 2018-12-28 09:47 | EDM.PDOC ---
<Elva Cramer - Last Filed: 12/28/18 11:57> ED HPI GENERAL MEDICAL PROBLEM - General Chief Complaint: Abdominal Pain Stated Complaint: DIVERTICULITIS ATTACK Time Seen by Provider: 12/28/18 09:42 Source of Information: Reports: Patient History Limitations: Reports: No Limitations - History of Present Illness INITIAL COMMENTS - FREE TEXT/NARRATIVE: Patient is a 53-year-old female complaining of left lower quadrant pain with chills since 10 PM last night. States this feels very similar to her previous 2 diverticulitis episodes; last episode 1 year ago. Denies any fevers, nausea, vomiting, diarrhea and no constipation. Patient is status post left shoulder arthroscopy and used 2-3 doses of hydrocodone since last night for her shoulder. States her last meal was last night as well and has no other symptoms to complain about. Denies any fevers,body aches, dysuria, hematuria or any sick contacts. Duration: Hour(s): (12) Location: Reports: Abdomen Left Lower Abdomen Pain Score (Numeric/FACES): 8 - Related Data Allergies Allergy/AdvReac Type Severity Reaction Status Date / Time Sulfa (Sulfonamide Allergy Itching Verified 12/28/18 08:42 Antibiotics) Home Meds: Home Meds Ciprofloxacin [Ciprofloxacin HCl] 500 mg PO BID 7 Days #14 tab 12/28/18 [Rx] Hydrocodone/Acetaminophen [Hydrocodon-Acetaminophn 10-325] 1 tab PO Q4H PRN [History] Hyoscyamine Sulfate [Levsin-Sl] 0.125 mg SL BID 2 Days #4 tab.subl 12/28/18 [Rx] Otc Keto 12/28/18 [History] Sennosides/Docusate Sodium [Stool Softener-Laxative] 1 tab PO ASDIRECTED [History] metroNIDAZOLE [Flagyl] 500 mg PO Q8H 7 Days #21 tab 12/28/18 [Rx] Past Medical History - Past Health History Medical/Surgical History: Denies Medical/Surgical History HEENT History: Reports: None Cardiovascular History: Reports: None Respiratory History: Reports: None Gastrointestinal History: Reports: Diverticulosis Other Gastrointestinal History: hx diverticulitis Genitourinary History: Reports: None 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: Musculoskeletal History: Reports: Back Pain, Chronic, Other (See Below) Neurological History: Reports: Other (See Below) Other Neuro History: Nerve pain r/t chronic back pain Psychiatric History: Reports: None Endocrine/Metabolic History: Reports: Obesity/BMI 30+ Hematologic History: Reports: Anemia, Blood Transfusion(s) Other Hematologic History: states transfusion when she was young, 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 Immunologic History: Reports: None Oncologic (Cancer) History: Reports: None Dermatologic History: Reports: None - Infectious Disease History Infectious Disease History: Reports: Chicken Pox - Past Surgical History Head Surgeries/Procedures: Reports: None HEENT Surgical History: Reports: Adenoidectomy, Tonsillectomy Cardiovascular Surgical History: Reports: None Respiratory Surgical History: Reports: None GI Surgical History: Reports: Cholecystectomy, Colonoscopy Female Surgical History: Reports: Section Endocrine Surgical History: Reports: None Neurological Surgical History: Reports: None Musculoskeletal Surgical History: Reports: Arthroscopic Knee, Knee Replacement, Shoulder Surgery, Other (See Below) Other Musculoskeletal Surgeries/Procedures:: Right knee surgery for meniscus repair, right rotator cuff repair Oncologic Surgical History: Reports: None Dermatological Surgical History: Reports: None Social & Family History - Family History Family Medical History: Noncontributory HEENT: Reports: None Cardiac: Reports: None Oncologic: Reports: None - Tobacco Use Smoking Status *Q: Never Smoker - Caffeine Use Caffeine Use: Reports: Soda Other Caffeine Use: 4 cans a day - Recreational Drug Use Recreational Drug Use: No - Living Situation & Occupation Living situation: Reports: with Significant Other, with Family 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 Denies: Fever HEENT: Reports: No Symptoms Respiratory: Reports: No Symptoms. Denies: Shortness of Breath, Wheezing, Cough Cardiovascular: Denies: Chest Pain GI/Abdominal: Reports: Abdominal Pain. Denies: Anorexia, Black Stool, Bloody Stool, Constipation, Diarrhea : Denies: Discharge, Dysuria, Flank Pain, Frequency, Urgency Musculoskeletal: Denies: Back Pain Neurological: Denies: Dizziness, Headache Psychiatric: Reports: No Symptoms Hematologic/Lymphatic: Reports: No Symptoms ED EXAM, GI/ABD - Physical Exam Exam: See Below Exam Limited By: No Limitations General Appearance: Alert, WD/WN, No Apparent Distress Throat/Mouth: Normal Inspection Respiratory/Chest: No Respiratory Distress, Lungs Clear, Normal Breath Sounds Cardiovascular: Normal Peripheral Pulses, Regular Rate, Rhythm, No Edema GI/Abdominal Exam: Other (LLQ tenderenss; no rebound tenderness, no organomegaly. BS WNL. no flank tenderness) Extremities: Normal Inspection, Normal Range of Motion Neurological: Alert, Oriented Psychiatric: Normal Affect, Normal Mood Course - Vital Signs Text/Narrative:: Patient on reassessment started to complain of mild increase in LLQ pain; interval physical exam showed increased tenderness; tordol and Hyocamine given to patient. Bolus of NS also given. Patient tolerating PO fluids. Vitals stable. Last Recorded V/S: Last Vital Signs Temp 35.7 C 12/28/18 08:35 Pulse 69 12/28/18 12:02 Resp 18 12/28/18 11:05 BP 141/96 H 12/28/18 12:02 Pulse Ox 99 12/28/18 12:02 - Orders/Labs/Meds Orders: Active Orders 24 hr Category Date Time Status CULTURE URINE [RM] Stat Lab 12/28/18 09:17 Received Hyoscyamine [Hyosyne] Med 12/28/18 11:30 Active 0.125 mg PO Q4H Medication Orders Hyoscyamine (Hyosyne) 0.125 mg PO Q4H KARY Last Admin: 12/28/18 11:34 Dose: Not Given Labs: Laboratory Tests 12/28/18 12/28/18 12/28/18 Range/Units 08:38 08:38 09:17 WBC 10.87 (4.0-11.0) K/uL RBC 4.68 (4.30-5.90) M/uL Hgb 14.3 (12.0-16.0) g/dL Hct 43.5 (36.0-46.0) % MCV 92.9 (80.0-98.0) fL MCH 30.6 (27.0-32.0) pg MCHC 32.9 (31.0-37.0) g/dL RDW Std Deviation 42.2 (28.0-62.0) fl RDW Coeff of Morris 13 (11.0-15.0) % Plt Count 312 (150-400) K/uL MPV 9.90 (7.40-12.00) fL Neut % (Auto) 68.2 (48.0-80.0) % Lymph % (Auto) 22.2 (16.0-40.0) % Brule % (Auto) 6.7 (0.0-15.0) % Eos % (Auto) 2.6 (0.0-7.0) % Baso % (Auto) 0.3 (0.0-1.5) % Neut # (Auto) 7.4 H (1.4-5.7) K/uL Lymph # (Auto) 2.4 (0.6-2.4) K/uL Brule # (Auto) 0.7 (0.0-0.8) K/uL Eos # (Auto) 0.3 (0.0-0.7) K/uL Baso # (Auto) 0.0 (0.0-0.1) K/uL Nucleated RBC % 0.0 /100WBC Nucleated RBCs # 0 K/uL Sodium 137 (136-145) mmol/L Potassium 4.0 (3.5-5.1) mmol/L Chloride 102 (98-107) mmol/L Carbon Dioxide 24.8 (21.0-32.0) mmol/L BUN 23 H (7.0-18.0) mg/dL Creatinine 1.2 H (0.6-1.0) mg/dL Est Cr Clr Drug Dosing 49.59 mL/min Estimated GFR (MDRD) 46.6 ml/min Glucose 95 (74-106) mg/dL Calcium 9.2 (8.5-10.1) mg/dL Total Bilirubin 0.5 (0.2-1.0) mg/dL AST 22 (15-37) IU/L ALT 46 (14-63) IU/L Alkaline Phosphatase 109 (46-116) U/L Total Protein 8.5 H (6.4-8.2) g/dL Albumin 3.9 (3.4-5.0) g/dL Globulin 4.6 H (2.6-4.0) g/dL Albumin/Globulin Ratio 0.9 (0.9-1.6) Urine Color YELLOW Urine Appearance CLEAR Urine pH 5.5 (5.0-8.0) Ur Specific [place] 1.025 (1.001-1.035) Urine Protein NEGATIVE (NEGATIVE) mg/dL Urine Glucose (UA) NEGATIVE (NEGATIVE) mg/dL Urine Ketones NEGATIVE (NEGATIVE) mg/dL Urine Occult Blood TRACE-INTACT H (NEGATIVE) Urine Nitrite NEGATIVE (NEGATIVE) Urine Bilirubin NEGATIVE (NEGATIVE) Urine Urobilinogen 0.2 (<2.0) EU/dL Ur Leukocyte Esterase SMALL H (NEGATIVE) Urine RBC 0-1 (0-2/HPF) Urine WBC 1-3 (0-5/HPF) Ur Epithelial Cells FEW (NONE-FEW) Urine Bacteria FEW (NEGATIVE) Meds: Medications Generic Name Dose Route Start Last Admin Trade Name Freq PRN Reason Stop Dose Admin Hyoscyamine 0.125 mg 12/28/18 11:30 12/28/18 11:34 Hyosyne PO Not Given Q4H KARY Discontinued Medications Generic Name Dose Route Start Last Admin Trade Name Freq PRN Reason Stop Dose Admin Ciprofloxacin 500 mg 12/28/18 10:34 12/28/18 10:47 Ciprofloxacin Hcl PO 12/28/18 10:35 500 mg ONETIME ONE Administration Hyoscyamine 0.125 mg 12/28/18 11:34 12/28/18 11:38 Hyomax-Sl SL 12/28/18 11:35 0.125 mg ONETIME ONE Administration Sodium Chloride 1,000 mls @ 999 mls/hr 12/28/18 10:58 12/28/18 11:02 Normal Saline IV 12/28/18 11:58 999 mls/hr .Bolus ONE Administration Iopamidol 75 ml 12/28/18 10:00 12/28/18 10:00 Isovue Multipack-370 (76%) IVPUSH 12/28/18 10:01 75 ml ONETIME STA Administration Ketorolac Tromethamine 30 mg 12/28/18 11:02 12/28/18 11:08 Toradol IVPUSH 12/28/18 11:03 30 mg ONETIME ONE Administration Metronidazole 250 mg 12/28/18 10:35 12/28/18 10:58 Metronidazole PO 12/28/18 10:36 250 mg ONETIME ONE Administration Departure - Departure Time of Disposition: 11:59 Disposition: Home, Self-Care 01 Clinical Impression: Diverticulitis - Discharge Information Prescriptions: Ciprofloxacin [Ciprofloxacin HCl] 500 mg PO BID 7 Days #14 tab Hyoscyamine Sulfate [Levsin-Sl] 0.125 mg SL BID 2 Days #4 tab.subl metroNIDAZOLE [Flagyl] 500 mg PO Q8H 7 Days #21 tab Instructions: Diverticulitis, [id number] Referrals: Gregg Robledo MD [Primary Care Provider] - Forms: ED Department Discharge - Assessment/Plan Assessment:: 1. Mild diverticulitis Sigmoid/descending colon 2. UTI. Plan: Pt. initiated on PO Flagyl and Ciprofloxacin. 7-day course given for outpatient. Clear liquid diet advised with advice to advance diet as tolerated. Advised to reduce use of opioids if constipation develops. PCP follow-up will be scheduled; best to be seen within 1-week. Advised to return if symptoms worsen, fever develops. P.t states she will follow up with her "diverticulitis doctor" ; Dr. Peter Walls. <Joe Cardoza - Last Filed: 12/28/18 12:11> Course - Vital Signs Text/Narrative:: I saw evaluated the patient. I reviewed the resident's note and agree.
[2018-12-28] MEDS ORDERED: Iopamidol 755 MG/ML 500 ML Multipack Bottle IVPUSH STA (10:00)
--- NOTE | 2018-12-28 10:19 | CT ---
INDICATION: LLQ PAIN THAT STARTED LAST NIGHT AT 2200HRS. HX OF DIVERTICULITIS Indication: Left lower quadrant abdominal pain. Prior history of diverticulitis. Technique: CT of the abdomen and pelvis. 100 cc of Isovue 370 IV. Coronal/sagittal reconstruction images. Comparison: CT of the abdomen and pelvis, 03/19/2018. Findings: Lung bases: No pleural or pericardial effusion. Heart size is normal. There is bibasilar dependent atelectasis. There is no acute airspace disease. There is no basilar pneumothorax. Abdomen/pelvis: Non cirrhotic liver morphology. No perihepatic ascites. Cholecystectomy. Normal caliber biliary tree. No pancreatic mass, pancreatic duct dilation, or glandular atrophy. There is no hydronephrosis. There are no perinephric inflammatory changes. The spleen size is normal. There is no portal vein thrombosis. Urinary bladder is normal. No adnexal mass. Diverticulitis of the sigmoid colon, and distal descending colon. This is in a location of very similar to the CT from 03/19/2018. There is no pneumatosis. There is no portal venous gas. There is no pneumoperitoneum. No findings for appendicitis. No abdominal aortic aneurysm. Visceral artery branches are patent. No adenopathy is seen by size criteria in the pelvis, retroperitoneum, gastrohepatic ligament, small bowel mesentery. Probable fibroid in the uterine corpus, which appears isodense, measuring 3.8 cm on image 129, series 201. The bone windows demonstrate small sclerotic lesion in the right proximal femur, likely benign bone islands. Spurring is present throughout the endplates of the thoracic and lumbar spine. On sagittal reconstruction images, vertebral body heights and alignment are maintained. Impression: 1. Diverticulitis involving the distal descending and sigmoid colon. 2. The appearance today is very similar to the CT performed 03/19/2018. 3. There is no drainable fluid collection, abscess, or pneumoperitoneum. 4. After symptoms resolve, optical colonoscopy is suggested to exclude an underlying mass. Dictated by Gregg Lopez MD @ 12/28/2018 10:18:03 AM Please note that all CT scans at this facility use dose modulation, iterative reconstruction, and/or weight-based dosing when appropriate to reduce radiation dose to as low as reasonably achievable. Dictated by: Gregg Lopez MD @ 12/28/2018 10:18:27 (Electronically Signed)
[2018-12-28] MEDS ORDERED: Ciprofloxacin 500 MG Tab PO ONE (10:34)
[2018-12-28] MEDS ORDERED: metroNIDAZOLE 250 MG Tab PO ONE (10:35)
[2018-12-28] MEDS ORDERED: Sodium Chloride 0.9% 1,000 ML IV ONE (10:58)
[2018-12-28] MEDS ORDERED: Ketorolac 30 MG/ML SDV IVPUSH ONE (11:02)
[2018-12-28] MEDS ORDERED: Hyoscyamine 0.125 MG/ML Bottle PO SCH (11:30)
[2018-12-28] MEDS ORDERED: Hyoscyamine 0.125 MG Tab.SL SL ONE (11:34)
[2018-12-28 12:03] VITALS: BP 141/96; PULSE 69
== END 2018-12-28 12:10 | disposition home or self-care (01) ==
LOC: MW.ED 08:23
DX: K57.32 Diverticulitis of large intestine without perforation or abscess without bleeding (principal); E66.9 Obesity, unspecified; Z68.32 Body mass index [BMI] 32.0-32.9, adult; Z88.2 Allergy status to sulfonamides; Z90.49 Acquired absence of other specified parts of digestive tract
CPT/HCPCS: 36415; 74177; 80053; 81001; 85025; 87086; 96361; 96374; 99284; A9270; J1885; J7040; Q9967

== ENCOUNTER 2019-10-22 12:20 | Emergency (ER) | payer OTHER ==
[2019-10-22] MEDS ORDERED: Acetaminophen 500 MG Tab PO ONE (12:50)
[2019-10-22] MEDS ORDERED: Ibuprofen 600 MG Tab PO ONE (12:50)
--- NOTE | 2019-10-22 12:54 | EDM.PDOC ---
ED HPI GENERAL MEDICAL PROBLEM - General Chief Complaint: Respiratory Problem Stated Complaint: SICK FOR A FEW DAYS Time Seen by Provider: 10/22/19 12:35 Source of Information: Reports: Patient History Limitations: Reports: No Limitations - History of Present Illness INITIAL COMMENTS - FREE TEXT/NARRATIVE: 54F PMHx seasonal allergies presents for 2 days of sinus congestion/pressure, headache, chest congestion, non-productive cough. 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 She denies difficulty breathing. 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: Musculoskeletal History: Reports: Back Pain, Chronic, Other (See Below) Neurological History: Reports: Other (See Below) Other Neuro History: Nerve pain r/t chronic back pain Psychiatric History: Reports: None Endocrine/Metabolic History: Reports: Obesity/BMI 30+ Hematologic History: Reports: Anemia, Blood Transfusion(s) Other Hematologic History: states transfusion when she was young, 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 Immunologic History: Reports: None Oncologic (Cancer) History: Reports: None Dermatologic History: Reports: None - Infectious Disease History Infectious Disease History: Reports: Chicken Pox - Past Surgical History Head Surgeries/Procedures: Reports: None HEENT Surgical History: Reports: Adenoidectomy, Tonsillectomy Cardiovascular Surgical History: Reports: None Respiratory Surgical History: Reports: None GI Surgical History: Reports: Cholecystectomy, Colonoscopy Female Surgical History: Reports: Section Endocrine Surgical History: Reports: None Neurological Surgical History: Reports: None Musculoskeletal Surgical History: Reports: Arthroscopic Knee, Knee Replacement, Shoulder Surgery, Other (See Below) Other Musculoskeletal Surgeries/Procedures:: Right knee surgery for meniscus repair, right rotator cuff repair Oncologic Surgical History: Reports: None Dermatological Surgical History: Reports: None Social & Family History - Family History Family Medical History: Noncontributory HEENT: Reports: None Cardiac: Reports: None Oncologic: Reports: None - Caffeine Use Caffeine Use: Reports: Soda Other Caffeine Use: 4 cans a day - Living Situation & Occupation Living situation: Reports: with Significant Other, with Family 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 ED EXAM, GENERAL - Physical Exam Exam: See Below Exam Limited By: No Limitations General Appearance: Alert, WD/WN, No Apparent Distress Ears: Normal External Exam Nose: Normal Inspection Throat/Mouth: Normal Inspection, Normal Oropharynx Head: Atraumatic, Normocephalic Respiratory/Chest: No Respiratory Distress, Lungs Clear, Normal Breath Sounds, No Accessory Muscle Use Cardiovascular: Normal Peripheral Pulses, Regular Rate, Rhythm Neurological: Alert Psychiatric: Normal Affect, Normal Mood Skin Exam: Warm, Dry Course - Vital Signs Last Recorded V/S: Last Vital Signs Temp 96.3 F L 10/22/19 12:47 Pulse 67 10/22/19 12:47 Resp 15 10/22/19 12:47 BP 141/81 H 10/22/19 12:47 Pulse Ox 97 10/22/19 12:47 - Orders/Labs/Meds Labs: Laboratory Tests 10/22/19 Range/Units 12:55 COVID-19 (CELY) NEGATIVE (NEGATIVE) Meds: Medications Discontinued Medications Generic Name Dose Route Start Last Admin Trade Name Josefina PRN Reason Stop Dose Admin Acetaminophen 1,000 mg 10/22/19 12:50 10/22/19 12:57 Tylenol Extra Strength PO 10/22/19 12:51 1,000 mg ONETIME ONE Administration Ibuprofen 600 mg 10/22/19 12:50 10/22/19 12:58 Motrin PO 10/22/19 12:51 600 mg ONETIME ONE Administration - Re-Assessments/Exams Free Text/Narrative Re-Assessment/Exam: 10/22/19 12:53 Will get COVID-19 testing, will tx symptomatically with tylenol/motrin. Spoke with patient about delayed abx and why I do not like to give antibiotics for sinusitis until 10 days of symptoms and she understands. If COVID is negative will d/c with flonase and instructions for motrin/tylenol use. Patient understands and agrees with plan. 10/22/19 13:27 COVID testing is negative; will d/c with flonase and instructions to f/u with PMD if no relief of symptoms after 10 days for antibiotics/sinusitis workup Departure - Departure Time of Disposition: 13:25 Disposition: Home, Self-Care 01 Condition: Good Clinical Impression: Seasonal allergies - Discharge Information Referrals: Gregg Robledo MD [Primary Care Provider] - Forms: ED Department Discharge Sepsis Event Note (ED) - Evaluation Sepsis Screening Result: No Definite Risk - Focused Exam Vital Signs: Vital Signs Temp Pulse Resp BP Pulse Ox 10/22/19 12:47 96.3 F L 67 15 141/81 H 97
[2019-10-22 13:55] VITALS: BP 141/80; PULSE 76
== END 2019-10-22 13:55 | disposition home or self-care (01) ==
LOC: MW.ED 12:20
DX: J30.2 Other seasonal allergic rhinitis (principal); Z20.828 Contact with and (suspected) exposure to other viral communicable diseases; Z88.2 Allergy status to sulfonamides; E66.9 Obesity, unspecified
CPT/HCPCS: 87635; 99283; A9270; 99282; U0002

== ENCOUNTER 2020-07-19 13:14 | Emergency (ER) | payer OTHER ==
[2020-07-19 14:17] LABS: CARBON DIOXIDE,CO2 24.1 mmol/L (21.0-32.0); POTASSIUM,K 3.7 mmol/L (3.5-5.1)
[2020-07-19] MEDS ORDERED: Morphine 4 MG/ML Syringe IVPUSH ONE (14:27)
[2020-07-19] MEDS ORDERED: Amoxicillin/Clavulanate K 875-125 MG Tab PO ONE (14:59)
--- NOTE | 2020-07-19 15:03 | EDM.PDOC ---
ED HPI GENERAL MEDICAL PROBLEM - General Chief Complaint: Abdominal Pain Stated Complaint: diverticalitis Time Seen by Provider: 07/19/20 13:23 - History of Present Illness INITIAL COMMENTS - FREE TEXT/NARRATIVE: CHIEF COMPLAINT(S): Abdominal pain HISTORY OF PRESENT ILLNESS: This is a 55-year-old woman with a past medical history of diverticulitis who comes to the emergency department with a chief complaint of abdominal pain. The patient states that starting at approximately 10:00 today she started to experience left lower quadrant abdominal pain similar to her prior abdominal pain episodes with diverticulitis. She states that she did have some constipation earlier in the morning followed by diarrhea. She denies any melena, hematochezia. She denies any associated nausea or vomiting. She denies any fevers or chills. She rates her pain as 10 out of 10 without any radiation. She states that touching the area exacerbates the pain. She denies any relieving factors. She denies any dysuria, hematuria but states that she does have some mild left-sided back pain. She denies any numbness, tingling, weakness. She states that she has had multiple colonoscopies by Dr. Walls. REVIEW OF SYSTEMS: Constitutional: Denies fever, chills. Eyes: Denies eye pain Ears, Nose, Mouth, & Throat: Denies earache Cardiovascular: Denies chest pain Respiratory: Denies shortness of breath Gastrointestinal: Positive for left lower quadrant abdominal pain, constipation, diarrhea. Denies nausea, vomiting, hematochezia, melena, hematemesis, bilious emesis Genitourinary: Denies hematuria dysuria, vaginal bleeding, vaginal discharge Skin:Denies a rash MSK: Denies joint pain Neurological: Denies blurred vision Psychiatric: Denies depression PAST MEDICAL HISTORY: As per history of present illness and as reviewed below otherwise noncontributory. SURGICAL HISTORY: As per history of present illness and as reviewed below otherwise noncontributory. SOCIAL HISTORY: As per history of present illness and as reviewed below otherwise noncontributory. FAMILY HISTORY: As per history of present illness and as reviewed below otherwise noncontributory. EXAMINATION OF ORGAN SYSTEMS/BODY AREAS: Constitutional: Blood pressure was 145/80, heart rate 76, respiratory rate 16 with an oxygen saturation of 98% on room air. Temperature 36.5 General: Overall well-appearing woman who is in no acute distress Psychiatric: Appropriate mood and affect. Eyes: No scleral icterus or conjunctival erythema ENMT: Moist mucous membranes. No pharyngeal erythema Cardiovascular: Regular, rate, and rhythm. No gallops, murmurs, or rubs. Bilateral upper extremity pulses symmetric and intact. No peripheral edema. No JVD. Respiratory: Lungs clear to auscultation bilaterally. No wheezes, rales, or rhonchi. Gastrointestinal: Soft, nondistended, tenderness to palpation the left lower quadrant without any rebound or guarding. Negative Alvarez's and McBurney's. Normoactive bowel sounds Genitourinary: No suprapubic tenderness no CVA tenderness musculoskeletal: Normal range of motion. Mild left paraspinal lumbar tenderness. Skin: No lesions or abrasions. Neurological: Alert, GCS 15 MEDICAL DECISION MAKING AND COURSE IN THE ED WITH INTERPRETATION/REVIEW OF DIAGNOSTIC STUDIES: This is a 55-year-old woman with a past medical history of diverticulitis who comes to the emergency department with acute left lower quadrant abdominal pain with alternating diarrhea and constipation. At this time I did discuss the patient that I do believe the patient is likely experiencing acute episode of diverticulitis again. I did offer obtaining a CT however given her vitals are normal she did not want to obtain a CT. I do think the patient can be treated with outpatient antibiotics given that she overall appears well. We will obtain CBC, CMP, and urinalysis to evaluate for any other abnormalities. We will provide the patient with morphine for pain relief and start the patient on Augmentin. Laboratory: CBC reveals a leukocytosis of 11.86 with neutrophilic increase however no segmented neutrophils. CMP reveals elevated BUN at 19 and creatinine of 1.2 which is around the patient's baseline, hypocalcemia at 8.2 otherwise unremarkable. Urinalysis was a clean catch and was small for leukocyte esterase, negative for nitrites, and trace for blood. 0-3 WBCs, few bacteria interpretation: Negative. After labs the patient's pain had improved. I did discuss with her at this time that if she has any worsening of her abdominal pain or development of fevers, vomiting, or bloody stool she need to return to the emergency department. She was amenable discharge at this time and had no further questions. DISPOSITION: The patient was discharged home in stable condition. The patient will follow up with general surgery within 3 to 5 days CONDITION: Fair PROCEDURES: None FINAL IMPRESSION(S)/DIAGNOSES: 1. Acute left lower quadrant abdominal pain likely secondary to diverticulitis Chalino Hobson M.D. abd Pain Score (Numeric/FACES): 10 - Related Data Allergies Allergy/AdvReac Type Severity Reaction Status Date / Time Sulfa (Sulfonamide Allergy Itching Verified 07/19/20 13:40 Antibiotics) Home Meds: Home Meds Amoxicillin/Clavulanate K [Augmentin 875-125 MG] 1 tab PO BID #14 tablet 07/19/20 [Rx] Phentermine HCl 37.5 mg PO DAILY 07/19/20 [History] Past Medical History - Past Health History Medical/Surgical History: Denies Medical/Surgical History HEENT History: Reports: None Cardiovascular History: Reports: None Respiratory History: Reports: None Gastrointestinal History: Reports: Diverticulosis Other Gastrointestinal History: hx diverticulitis Genitourinary History: Reports: None 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 History: Reports: Musculoskeletal History: Reports: Back Pain, Chronic, Other (See Below) Neurological History: Reports: Other (See Below) Other Neuro History: Nerve pain r/t chronic back pain Psychiatric History: Reports: None Endocrine/Metabolic History: Reports: Obesity/BMI 30+ Hematologic History: Reports: Anemia, Blood Transfusion(s) Other Hematologic History: states transfusion when she was young, 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 Immunologic History: Reports: None Oncologic (Cancer) History: Reports: None Dermatologic History: Reports: None - Infectious Disease History Infectious Disease History: Reports: Chicken Pox - Past Surgical History Head Surgeries/Procedures: Reports: None HEENT Surgical History: Reports: Adenoidectomy, Tonsillectomy Cardiovascular Surgical History: Reports: None Respiratory Surgical History: Reports: None GI Surgical History: Reports: Cholecystectomy, Colonoscopy Female Surgical History: Reports: Section Endocrine Surgical History: Reports: None Neurological Surgical History: Reports: None Musculoskeletal Surgical History: Reports: Arthroscopic Knee, Knee Replacement, Shoulder Surgery, Other (See Below) Other Musculoskeletal Surgeries/Procedures:: Right knee surgery for meniscus repair, right rotator cuff repair Oncologic Surgical History: Reports: None Dermatological Surgical History: Reports: None Social & Family History - Family History Family Medical History: No Pertinent Family History HEENT: Reports: None Cardiac: Reports: None Oncologic: Reports: None - Tobacco Use Tobacco Use Status *Q: Never Tobacco User - Caffeine Use Caffeine Use: Reports: Soda Other Caffeine Use: 4 cans a day - Recreational Drug Use Recreational Drug Use: No - Living Situation & Occupation Living situation: Reports: with Significant Other, with Family 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) ED ROS GENERAL - Review of Systems Review Of Systems: See Below ED EXAM, GENERAL - Physical Exam Exam: See Below Course - Vital Signs Last Recorded V/S: Last Vital Signs Temp 36.5 C 07/19/20 13:37 Pulse 100 07/19/20 15:55 Resp 16 07/19/20 15:55 BP 112/79 07/19/20 15:55 Pulse Ox 100 07/19/20 15:55 - Orders/Labs/Meds Labs: Laboratory Tests 07/19/20 07/19/20 07/19/20 Range/Units 13:38 13:38 13:38 WBC 11.86 H (4.0-11.0) K/uL RBC 4.46 (4.30-5.90) M/uL Hgb 13.9 (12.0-16.0) g/dL Hct 41.6 (36.0-46.0) % MCV 93.3 (80.0-98.0) fL MCH 31.2 (27.0-32.0) pg MCHC 33.4 (31.0-37.0) g/dL RDW Std Deviation 45.9 (28.0-62.0) fl RDW Coeff of Morris 14 (11.0-15.0) % Plt Count 255 (150-400) K/uL MPV 10.20 (7.40-12.00) fL Neut % (Auto) 72.1 (48.0-80.0) % Lymph % (Auto) 21.2 (16.0-40.0) % Kimball % (Auto) 4.8 (0.0-15.0) % Eos % (Auto) 1.7 (0.0-7.0) % Baso % (Auto) 0.2 (0.0-1.5) % Neut # (Auto) 8.6 H (1.4-5.7) K/uL Lymph # (Auto) 2.5 H (0.6-2.4) K/uL Kimball # (Auto) 0.6 (0.0-0.8) K/uL Eos # (Auto) 0.2 (0.0-0.7) K/uL Baso # (Auto) 0.0 (0.0-0.1) K/uL Nucleated RBC % 0.0 /100WBC Nucleated RBCs # 0 K/uL Sodium 141 (136-145) mmol/L Potassium 3.7 (3.5-5.1) mmol/L Chloride 104 (98-107) mmol/L Carbon Dioxide 24.1 (21.0-32.0) mmol/L BUN 19 H (7.0-18.0) mg/dL Creatinine 1.2 H (0.6-1.0) mg/dL Est Cr Clr Drug Dosing 48.42 mL/min Estimated GFR (MDRD) 46.3 ml/min Glucose 98 (74-106) mg/dL Calcium 8.2 L (8.5-10.1) mg/dL Total Bilirubin 0.5 (0.2-1.0) mg/dL AST 24 (15-37) IU/L ALT 40 (14-63) IU/L Alkaline Phosphatase 75 (46-116) U/L Total Protein 7.9 (6.4-8.2) g/dL Albumin 4.0 (3.4-5.0) g/dL Globulin 3.9 (2.6-4.0) g/dL Albumin/Globulin Ratio 1.0 (0.9-1.6) Urine Color YELLOW Urine Appearance HAZY Urine pH 5.5 (5.0-8.0) Ur Specific [place] 1.020 (1.001-1.035) Urine Protein NEGATIVE (NEGATIVE) mg/dL Urine Glucose (UA) NEGATIVE (NEGATIVE) mg/dL Urine Ketones NEGATIVE (NEGATIVE) mg/dL Urine Occult Blood TRACE-INTACT H (NEGATIVE) Urine Nitrite NEGATIVE (NEGATIVE) Urine Bilirubin NEGATIVE (NEGATIVE) Urine Urobilinogen 0.2 (<2.0) EU/dL Ur Leukocyte Esterase SMALL H (NEGATIVE) Urine RBC 0-1 (0-2/HPF) Urine WBC 0-3 (0-5/HPF) Ur Epithelial Cells RARE (NONE-FEW) Urine Bacteria FEW (NEGATIVE) Meds: Medications Discontinued Medications Generic Name Dose Route Start Last Admin Trade Name Freq PRN Reason Stop Dose Admin Amoxicillin/Clavulanate Potassium 1 tab 05/14/21 14:59 07/19/20 15:10 Amoxicillin/Clavulanate K 875-125 Mg Tab PO 07/19/20 15:00 1 tab ONETIME ONE Administration Morphine Sulfate 4 mg 07/19/20 14:27 07/19/20 14:37 Morphine 4 Mg/Ml Syringe IVPUSH 07/19/20 14:28 4 mg ONETIME ONE Administration Departure - Departure Time of Disposition: 15:55 Disposition: Home, Self-Care 01 Condition: Fair Clinical Impression: Diverticulitis - Discharge Information *PRESCRIPTION DRUG MONITORING PROGRAM REVIEWED*: No *COPY OF PRESCRIPTION DRUG MONITORING REPORT IN PATIENT SHELDON: No Prescriptions: Amoxicillin/Clavulanate K [Augmentin 875-125 MG] 1 tab PO BID #14 tablet Instructions: Diverticulitis, [id number], Diverticulitis Referrals: Gregg Walls [Primary Care Provider] - Forms: ED Department Discharge Additional Instructions: Your eval today on an emergent basis. At this time given that your symptoms are similar to your prior diverticular episodes we did start you on Augmentin. I do recommend that you take this twice a day in addition to docusate and Colace which can be purchased [id number]. I did prescribe you [place] for pain relief. You can use this every 6 hours for pain. If you have any worsening symptoms please return to the emergency department such as worsening pain, fever or blood in your stool. Please follow-up with your surgeon in 3 to 5 days. [facility] - [place] - General Surgery [address], [address] [place] [address] The patient is informed of any results of their evaluation and diagnostic workup and all questions are answered. They are given discharge instructions and return precautions. The patient is stable for discharge. The patient states they understand and agree with the plan and that they will return if their symptoms get worse or if they have any new concerns. The following information is given to patients seen in the emergency department who are being discharged to home. This information is to outline your options for follow-up care. We provide all patients seen in our emergency department with a follow-up referral. The need for follow-up, as well as the timing and circumstances, are variable depending upon the specifics of your emergency department visit. If you don't have a primary care physician on staff, we will provide you with a referral. We always advise you to contact your personal physician following an emergency department visit to inform them of the circumstance of the visit and for follow-up with them and/or the need for any referrals to a consulting specialist. The emergency department will also refer you to a specialist when appropriate. This referral assures that you have the opportunity for follow-up care with a specialist. All of these measure are taken in an effort to provide you with optimal care, which includes your follow-up. Under all circumstances we always encourage you to contact your private physician who remains a resource for coordinating your care. When calling for follow-up care, please make the office aware that this follow-up is from your recent emergency room visit. If for any reason you are refused follow-up, please contact the [facility] Emergency Department at and asked to speak to the emergency department charge nurse. Sepsis Event Note (ED) - Evaluation Sepsis Screening Result: No Definite Risk - Focused Exam Vital Signs: Vital Signs Temp Pulse Resp BP Pulse Ox 07/19/20 15:55 100 16 112/79 100 07/19/20 15:07 73 16 130/80 75 L 07/19/20 13:37 36.5 C 76 16 145/80 H 98
[2020-07-19 15:56] VITALS: BP 112/79; PULSE 100
== END 2020-07-19 15:59 | disposition home or self-care (01) ==
LOC: MW.ED 13:14
DX: K57.90 Diverticulosis of intestine, part unspecified, without perforation or abscess without bleeding (principal); E66.9 Obesity, unspecified; Z88.2 Allergy status to sulfonamides; Z68.34 Body mass index [BMI] 34.0-34.9, adult
CPT/HCPCS: 36415; 80053; 81001; 85025; 96374; 99284; A9270; J2270

== ENCOUNTER 2020-11-11 10:47 | Emergency (ER) | payer BC | END 2020-11-11 11:35 | disposition left against medical advice (07) | LOC: MW.ED 10:47 | DX: J32.9 Chronic sinusitis, unspecified (principal); Z53.21 Procedure and treatment not carried out due to patient leaving prior to being seen by health care provider ==

== ENCOUNTER 2021-03-16 16:34 | Emergency (ER) | payer BC ==
[2021-03-16] MEDS ORDERED: Sodium Chloride 0.9% 1,000 ML IV ONE (17:55)
[2021-03-16] MEDS ORDERED: Sodium Chloride 0.9% 2.5 ML Syringe FLUSH PRN (17:55)
[2021-03-16] MEDS ORDERED: cefTRIAXone 1 GM in Sodium Chloride 0.9% 50 ML IV ONE (17:55)
[2021-03-16] MEDS ORDERED: Sodium Chloride 0.9% 10 ML Syringe FLUSH PRN (17:55)
--- NOTE | 2021-03-16 17:59 | EDM.PDOC ---
ED HPI GENERAL MEDICAL PROBLEM - General Chief Complaint: Back Pain or Injury Stated Complaint: CHILLS, BACK PAIN Time Seen by Provider: 03/16/21 17:50 - History of Present Illness INITIAL COMMENTS - FREE TEXT/NARRATIVE: History of present illness: [] Patient has back pain in her flanks. She has relative anorexia. She is forced to self-feed some so she is done drinking enough. She has fever and chills as well. She has general weakness and body aches. The patient does not have any cough or upper respiratory symptoms. Patient has had kidney infections before. The back pain is worse than when she had prior kidney infections. Nothing makes it better. Review of systems: As per history of present illness and below otherwise all systems reviewed and negative. Past medical history: As per history of present illness and as reviewed below otherwise noncontributory. Surgical history: As per history of present illness and as reviewed below otherwise noncontributory. Social history: No reported history of drug or alcohol abuse. Family history: As per history of present illness and as reviewed below otherwise noncontributory. Physical exam: Constitutional - well developed, well-nourished and in no acute distress HEENT - normocephalic, no evidence of trauma - external nose and mouth normal - no mass in neck and no JVD - mucosae moist EYES - full EOM, PERRL, no icterus - no evidence of inflammation, injection, or drainage Respiratory - no respiratory distress, equal bilateral expansion, lungs clear to auscultation and no abnormal lung sounds Cardiovascular - Regular Rhythm with S1 and S2 appreciated and no murmur, gallop or rub. GI - abdomen soft without distension or organomegaly - normal bowel sounds - no rebound but tender and guards left lower quadrant. Musculoskeletal no gross deformity of long bones or joints - no tenderness, swelling or edema Neurologic - Alert and oriented times four - CN II-XII grossly intact - motor sensory and coordination symmetrically normal Psychiatric - appropriate mood and affect with normal thought content Hematologic - No petechiae or purpura - mucosa appropriate color and sclera not pale - normal nail bed color and refill Integument - no rash or evidence of trauma - normal turgor Diagnostics: [] Therapeutics: [] Impression: [] Plan: [] Definitive disposition and diagnosis as appropriate pending reevaluation and review of above. Back Pain Score (Numeric/FACES): 10 - Related Data Allergies Allergy/AdvReac Type Severity Reaction Status Date / Time Sulfa (Sulfonamide Allergy Itching Verified 03/16/21 17:47 Antibiotics) Home Meds: Home Meds Amoxicillin/Clavulanate K [Augmentin 875-125 MG] 1 tab PO Q12HR #20 tablet 11/27 [Rx] Past Medical History - Past Health History Medical/Surgical History: Denies Medical/Surgical History HEENT History: Reports: None Cardiovascular History: Reports: None Respiratory History: Reports: None Gastrointestinal History: Reports: Diverticulosis Other Gastrointestinal History: hx diverticulitis Genitourinary History: Reports: None [employer]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[employer] History: Reports: Musculoskeletal History: Reports: Back Pain, Chronic, Other (See Below) Neurological History: Reports: Other (See Below) Other Neuro History: Nerve pain r/t chronic back pain Psychiatric History: Reports: None Endocrine/Metabolic History: Reports: Obesity/BMI 30+ Hematologic History: Reports: Anemia, Blood Transfusion(s) Other Hematologic History: states transfusion when she was young, 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 Immunologic History: Reports: None Oncologic (Cancer) History: Reports: None Dermatologic History: Reports: None - Infectious Disease History Infectious Disease History: Reports: Chicken Pox - Past Surgical History Head Surgeries/Procedures: Reports: None HEENT Surgical History: Reports: Adenoidectomy, Tonsillectomy Cardiovascular Surgical History: Reports: None Respiratory Surgical History: Reports: None GI Surgical History: Reports: Cholecystectomy, Colonoscopy Female Surgical History: Reports: Section Endocrine Surgical History: Reports: None Neurological Surgical History: Reports: None Musculoskeletal Surgical History: Reports: Arthroscopic Knee, Knee Replacement, Shoulder Surgery, Other (See Below) Other Musculoskeletal Surgeries/Procedures:: Right knee surgery for meniscus repair, right rotator cuff repair Oncologic Surgical History: Reports: None Dermatological Surgical History: Reports: None Social & Family History - Family History Family Medical History: No Pertinent Family History HEENT: Reports: None Cardiac: Reports: None Oncologic: Reports: None - Tobacco Use Second Hand Smoke Exposure: No - Caffeine Use Caffeine Use: Reports: None Other Caffeine Use: 4 cans a day - Recreational Drug Use Recreational Drug Use: No - Living Situation & Occupation Living situation: Reports: with Significant Other, with Family 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 ED EXAM, GENERAL - Physical Exam Exam: See Below Free Text/Narrative:: My physical exam is in the HPI Course - Vital Signs Last Recorded V/S: Last Vital Signs Temp 37.2 C 03/16/21 17:39 Pulse 123 H 03/16/21 17:39 Resp 20 03/16/21 17:39 BP 138/76 03/16/21 17:39 Pulse Ox 99 03/16/21 17:39 - Orders/Labs/Meds Orders: Active Orders 24 hr Category Date Time Status CULTURE BLOOD [BC] Stat Lab 03/16/21 18:10 Received CULTURE BLOOD [BC] Stat Lab 03/16/21 18:15 Received CULTURE URINE [MREF] Stat Lab 03/16/21 17:40 Received Sodium Chloride 0.9% [Saline Flush] Med 03/16/21 17:55 Active 10 ml FLUSH ASDIRECTED PRN Sodium Chloride 0.9% [Saline Flush] Med 03/16/21 17:55 Active 2.5 ml FLUSH ASDIRECTED PRN Blood Culture x2 Reflex Set [OM.PC] Stat Oth 03/16/21 17:57 Ordered Saline Lock Insert [OM.PC] Stat Oth 03/16/21 17:56 Ordered Medication Orders Sodium Chloride (Sodium Chloride 0.9% 10 Ml Syringe) 10 ml FLUSH ASDIRECTED PRN PRN Reason: Keep Vein Open Last Admin: 03/16/21 18:21 Dose: 10 ml Documented by: JACQUELINE Sodium Chloride (Sodium Chloride 0.9% 2.5 Ml Syringe) 2.5 ml FLUSH ASDIRECTED PRN PRN Reason: Keep Vein Open Last Admin: 03/16/21 18:21 Dose: 2.5 ml Documented by: JACQUELINE Labs: Laboratory Tests 03/16/21 03/16/21 03/16/21 Range/Units 17:40 17:40 18:10 WBC 10.51 (4.0-11.0) K/uL RBC 4.69 (4.30-5.90) M/uL Hgb 14.4 (12.0-16.0) g/dL Hct 43.3 (36.0-46.0) % MCV 92.3 (80.0-98.0) fL MCH 30.7 (27.0-32.0) pg MCHC 33.3 (31.0-37.0) g/dL RDW Std Deviation 44.3 (28.0-62.0) fl RDW Coeff of [place] 13 (11.0-15.0) % Plt Count 236 (150-400) K/uL MPV 10.00 (7.40-12.00) fL Neut % (Auto) 93.3 H (48.0-80.0) % Lymph % (Auto) 5.4 L (16.0-40.0) % [place] % (Auto) 0.6 (0.0-15.0) % Eos % (Auto) 0.5 (0.0-7.0) % Baso % (Auto) 0.2 (0.0-1.5) % Neut # (Auto) 9.8 H (1.4-5.7) K/uL Lymph # (Auto) 0.6 (0.6-2.4) K/uL [place] # (Auto) 0.1 (0.0-0.8) K/uL Eos # (Auto) 0.1 (0.0-0.7) K/uL Baso # (Auto) 0.0 (0.0-0.1) K/uL Nucleated RBC % 0.0 /100WBC Nucleated RBCs # 0 K/uL Sodium (136-145) mmol/L Potassium (3.5-5.1) mmol/L Chloride (98-107) mmol/L Carbon Dioxide (21.0-32.0) mmol/L BUN (7.0-18.0) mg/dL Creatinine (0.6-1.0) mg/dL Est Cr Clr Drug Dosing mL/min Estimated GFR (MDRD) ml/min Glucose (74-106) mg/dL Calcium (8.5-10.1) mg/dL Total Bilirubin (0.2-1.0) mg/dL AST (15-37) IU/L ALT (14-63) IU/L Alkaline Phosphatase (46-116) U/L Total Protein (6.4-8.2) g/dL Albumin (3.4-5.0) g/dL Globulin (2.6-4.0) g/dL Albumin/Globulin Ratio (0.9-1.6) Lipase (73-393) U/L Urine Color YELLOW Urine Appearance CLEAR Urine pH 5.5 (5.0-8.0) Ur Specific [place] >= 1.030 (1.001-1.035) Urine Protein NEGATIVE (NEGATIVE) mg/dL Urine Glucose (UA) NEGATIVE (NEGATIVE) mg/dL Urine Ketones NEGATIVE (NEGATIVE) mg/dL Urine Occult Blood TRACE-INTACT H (NEGATIVE) Urine Nitrite NEGATIVE (NEGATIVE) Urine Bilirubin NEGATIVE (NEGATIVE) Urine Urobilinogen 0.2 (<2.0) EU/dL Ur Leukocyte Esterase NEGATIVE (NEGATIVE) Urine RBC 0-2 (0-2/HPF) Urine WBC 0-2 (0-5/HPF) Ur Epithelial Cells RARE (NONE-FEW) Urine Bacteria RARE (NEGATIVE) Urine HCG, Qual NEGATIVE (NEGATIVE) Influenza Type A RNA (NEGATIVE) Influenza Type B RNA (NEGATIVE) SARS-CoV-2 RNA (CELY) (NEGATIVE) 03/16/21 03/16/21 Range/Units 18:10 18:32 WBC (4.0-11.0) K/uL RBC (4.30-5.90) M/uL Hgb (12.0-16.0) g/dL Hct (36.0-46.0) % MCV (80.0-98.0) fL MCH (27.0-32.0) pg MCHC (31.0-37.0) g/dL RDW Std Deviation (28.0-62.0) fl RDW Coeff of [place] (11.0-15.0) % Plt Count (150-400) K/uL MPV (7.40-12.00) fL Neut % (Auto) (48.0-80.0) % Lymph % (Auto) (16.0-40.0) % [place] % (Auto) (0.0-15.0) % Eos % (Auto) (0.0-7.0) % Baso % (Auto) (0.0-1.5) % Neut # (Auto) (1.4-5.7) K/uL Lymph # (Auto) (0.6-2.4) K/uL [place] # (Auto) (0.0-0.8) K/uL Eos # (Auto) (0.0-0.7) K/uL Baso # (Auto) (0.0-0.1) K/uL Nucleated RBC % /100WBC Nucleated RBCs # K/uL Sodium 137 (136-145) mmol/L Potassium 4.0 (3.5-5.1) mmol/L Chloride 102 (98-107) mmol/L Carbon Dioxide 22.4 (21.0-32.0) mmol/L BUN 22 H (7.0-18.0) mg/dL Creatinine 1.2 H (0.6-1.0) mg/dL Est Cr Clr Drug Dosing 47.84 mL/min Estimated GFR (MDRD) 46.1 ml/min Glucose 110 H (74-106) mg/dL Calcium 9.7 (8.5-10.1) mg/dL Total Bilirubin 0.5 (0.2-1.0) mg/dL AST 26 (15-37) IU/L ALT 37 (14-63) IU/L Alkaline Phosphatase 102 (46-116) U/L Total Protein 8.3 H (6.4-8.2) g/dL Albumin 4.1 (3.4-5.0) g/dL Globulin 4.2 H (2.6-4.0) g/dL Albumin/Globulin Ratio 1.0 (0.9-1.6) Lipase 114 (73-393) U/L Urine Color Urine Appearance Urine pH (5.0-8.0) Ur Specific [place] (1.001-1.035) Urine Protein (NEGATIVE) mg/dL Urine Glucose (UA) (NEGATIVE) mg/dL Urine Ketones (NEGATIVE) mg/dL Urine Occult Blood (NEGATIVE) Urine Nitrite (NEGATIVE) Urine Bilirubin (NEGATIVE) Urine Urobilinogen (<2.0) EU/dL Ur Leukocyte Esterase (NEGATIVE) Urine RBC (0-2/HPF) Urine WBC (0-5/HPF) Ur Epithelial Cells (NONE-FEW) Urine Bacteria (NEGATIVE) Urine HCG, Qual (NEGATIVE) Influenza Type A RNA NEGATIVE (NEGATIVE) Influenza Type B RNA NEGATIVE (NEGATIVE) SARS-CoV-2 RNA (CELY) NEGATIVE (NEGATIVE) Meds: Medications Generic Name Dose Route Start Last Admin Trade Name Freq PRN Reason Stop Dose Admin Sodium Chloride 10 ml 03/16/21 17:55 03/16/21 18:21 Sodium Chloride 0.9% 10 Ml Syringe FLUSH 10 ml ASDIRECTED PRN Administration Keep Vein Open Sodium Chloride 2.5 ml 03/16/21 17:55 03/16/21 18:21 Sodium Chloride 0.9% 2.5 Ml Syringe FLUSH 2.5 ml ASDIRECTED PRN Administration Keep Vein Open Discontinued Medications Generic Name Dose Route Start Last Admin Trade Name Josefina PRN Reason Stop Dose Admin Sodium Chloride 1,000 mls @ 999 mls/hr 03/16/21 17:55 03/16/21 18:21 Normal Saline IV 03/16/21 18:55 999 mls/hr .Bolus ONE Administration Ceftriaxone Sodium 1 gm/ 50 mls @ 100 mls/hr 03/16/21 17:55 03/16/21 18:25 Sodium Chloride IV 03/16/21 18:24 100 mls/hr ONETIME ONE Administration Iopamidol 100 ml 03/16/21 19:00 03/16/21 19:00 Iopamidol 755 Mg/Ml 500 Ml Multipack Bottle IVPUSH 03/16/21 19:01 100 ml ONETIME ONE Administration Departure - Departure Time of Disposition: 19:24 Disposition: Home, Self-Care 01 Condition: Good Clinical Impression: Diverticulitis - Discharge Information Prescriptions: Amoxicillin/Clavulanate K [Augmentin 875-125 MG] 1 tab PO Q12HR #20 tablet Instructions: Diverticulitis, [id number] Forms: ED Department Discharge Additional Instructions: There is no evidence of perforation of her diverticulitis. Antibiotics were started here and a prescription sent to the pharmacy. They went to [facility]. If you feel suddenly worse or have a high fever or cannot tolerate fluids you need to return. [facility] - Primary Care [address] [place] [address] [id number] [address] [id number] The following information is given to patients seen in the emergency department who are being discharged to home. This information is to outline your options for follow-up care. We provide all patients seen in our emergency department with a follow-up referral. The need for follow-up, as well as the timing and circumstances, are variable depending upon the specifics of your emergency department visit. If you don't have a primary care physician on staff, we will provide you with a referral. We always advise you to contact your personal physician following an e mergency department visit to inform them of the circumstance of the visit and for follow-up with them and/or the need for any referrals to a consulting specialist. The emergency department will also refer you to a specialist when appropriate. This referral assures that you have the opportunity for follow-up care with a specialist. All of these measure are taken in an effort to provide you with op timal care, which includes your follow-up. Under all circumstances we always encourage you to contact your private physician who remains a resource for coordinating your care. When calling for follow-up care, please make the office aware that this follow-up is from your recent emergency room visit. If for any reason you are refused follow-up, please contact the [facility] Emergency Department at and asked to speak to the emergency department charge nurse. Sepsis Event Note (ED) - Evaluation Sepsis Screening Result: No Definite Risk - Focused Exam Vital Signs: Vital Signs Temp Pulse Resp BP Pulse Ox 03/16/21 17:39 37.2 C 123 H 20 138/76 99 - My Orders Last 24 Hours: My Active Orders 03/16/21 17:40 CULTURE URINE [MREF] Stat 03/16/21 17:55 Sodium Chloride 0.9% [Saline Flush] 10 ml FLUSH ASDIRECTED PRN Sodium Chloride 0.9% [Saline Flush] 2.5 ml FLUSH ASDIRECTED PRN 03/16/21 17:56 Saline Lock Insert [OM.PC] Stat 03/16/21 17:57 Blood Culture x2 Reflex Set [OM.PC] Stat 03/16/21 18:10 CULTURE BLOOD [BC] Stat 03/16/21 18:15 CULTURE BLOOD [BC] Stat - Assessment/Plan Last 24 Hours: My Active Orders 03/16/21 17:40 CULTURE URINE [MREF] Stat 03/16/21 17:55 Sodium Chloride 0.9% [Saline Flush] 10 ml FLUSH ASDIRECTED PRN Sodium Chloride 0.9% [Saline Flush] 2.5 ml FLUSH ASDIRECTED PRN 03/16/21 17:56 Saline Lock Insert [OM.PC] Stat 03/16/21 17:57 Blood Culture x2 Reflex Set [OM.PC] Stat 03/16/21 18:10 CULTURE BLOOD [BC] Stat 03/16/21 18:15 CULTURE BLOOD [BC] Stat
[2021-03-16 18:45] LABS: CARBON DIOXIDE,CO2 22.4 mmol/L (21.0-32.0)
[2021-03-16] MEDS ORDERED: Iopamidol 755 MG/ML 500 ML Multipack Bottle IVPUSH ONE (19:00)
[2021-03-16 19:18] LABS: CORONAVIRUS COVID-19 NAA NEGATIVE (NEGATIVE); INFLUENZA A NAA NEGATIVE (NEGATIVE); INFLUENZA B NAA NEGATIVE (NEGATIVE)
--- NOTE | 2021-03-16 19:18 | CT ---
Indication: Abdominal pain. Technique: Multiple contiguous axial images were obtained from the lung bases through the symphysis pubis after intravenous administration 100 cc Isovue 370. Please note that all CT scans at this facility use dose modulation, iterative reconstruction, and/or weight-based dosing when appropriate to reduce radiation dose to as low as reasonably achievable. Comparison: None Findings: Bibasilar atelectasis is identified. The heart is normal in size. No pericardial effusion is identified. Postsurgical changes of cholecystectomy are identified. The liver, spleen, pancreas, adrenals, and kidneys are normal. No intrahepatic biliary ductal dilatation is identified. No hydronephrosis is identified. In the pelvis, the urinary bladder is normal. The uterus is normal. The small and large bowel are normal in caliber. Diverticulitis of the sigmoid colon is identified. No abscess is identified. The appendix is normal. The aorta is normal in caliber. No lytic or blastic lesions of the spine are identified. Impression: Findings consistent with sigmoid diverticulitis. Please note that all CT scans at this facility use dose modulation, iterative reconstruction, and/or weight-based dosing when appropriate to reduce radiation dose to as low as reasonably achievable. Dictated by Edna Del Toro MD @ 03/16/2021 7:18:01 PM (Electronically Signed)
[2021-03-16 19:45] VITALS: BP 114/71; PULSE 113
== END 2021-03-16 19:45 | disposition home or self-care (01) ==
LOC: MW.ED 16:34
DX: K57.32 Diverticulitis of large intestine without perforation or abscess without bleeding (principal); E66.9 Obesity, unspecified; Z68.35 Body mass index [BMI] 35.0-35.9, adult; Z88.2 Allergy status to sulfonamides; Z20.822 Contact with and (suspected) exposure to COVID-19
CPT/HCPCS: 0240U; 36415; 74177; 80053; 81001; 81025; 83690; 85025; 87040; 87086; 87154; 96374; 99284; J0696; J7030; Q9967; 87077; 87186

== ENCOUNTER 2021-12-25 08:56 | Emergency (ER) | payer BC, OTHER ==
[2021-12-25] MEDS ORDERED: Morphine 4 MG/ML Syringe IVPUSH STA (09:00)
[2021-12-25] MEDS ORDERED: Lactated Ringers 1,000 ML IV STA (09:00)
[2021-12-25 10:16] LABS: CORONAVIRUS COVID-19 NAA NEGATIVE (NEGATIVE); INFLUENZA A NAA NEGATIVE (NEGATIVE); INFLUENZA B NAA NEGATIVE (NEGATIVE)
[2021-12-25 10:19] LABS: CARBON DIOXIDE,CO2 27.3 mmol/L (21.0-32.0); POTASSIUM,K 3.8 mmol/L (3.5-5.1)
[2021-12-25] MEDS ORDERED: Iopamidol 755 Mg/ML 100 ML Bottle IVPUSH ONE (10:58)
[2021-12-25] MEDS ORDERED: metroNIDAZOLE 250 MG Tab PO STA (11:37)
[2021-12-25] MEDS ORDERED: Ciprofloxacin 500 MG Tab PO STA (11:37)
[2021-12-25 12:10] VITALS: BP 132/86; PULSE 74
== END 2021-12-25 12:09 | disposition home or self-care (01) ==
LOC: MW.ED 08:56
DX: K57.32 Diverticulitis of large intestine without perforation or abscess without bleeding (principal); Z88.2 Allergy status to sulfonamides; E66.9 Obesity, unspecified; Z68.35 Body mass index [BMI] 35.0-35.9, adult; Z20.822 Contact with and (suspected) exposure to COVID-19
CPT/HCPCS: 0240U; 36415; 74177; 80053; 81001; 83605; 85025; 85610; 87040; 87086; 96361; 96374; 99284; A9270; J2270; J7120; Q9967

== ENCOUNTER 2022-01-16 06:30 | Day surgery (SDC) | payer BC ==
[2022-01-16] MEDS ORDERED: Propofol 200 MG/20 ML SDV ONE ×2 (07:38→08:25)
[2022-01-16] MEDS ORDERED: Lidocaine 2% 5 ML SDV ONE (07:39)
[2022-01-16] MEDS ORDERED: Lactated Ringers 1,000 ML IV SCH ×2 (08:30→08:45)
[2022-01-16 08:57] VITALS: PULSE 55
[2022-01-16 09:32] VITALS: BP 120/70
== END 2022-01-16 09:15 | disposition home or self-care (01) ==
LOC: MW.SDS 06:30
PROVIDERS: ATTEND Surgery
DX: K52.9 Noninfective gastroenteritis and colitis, unspecified (principal); K57.30 Diverticulosis of large intestine without perforation or abscess without bleeding; E66.9 Obesity, unspecified; Z88.2 Allergy status to sulfonamides; Z98.890 Other specified postprocedural states; Z68.35 Body mass index [BMI] 35.0-35.9, adult
CPT/HCPCS: J2704; J7120